=== PATIENT | male | born 1955 | race Hispanic/Latino ===

== ENCOUNTER 2018-04-20 11:39 | Inpatient (IN) | payer OTHER ==
[~2018-04-20] VITALS: Ht 160 cm; Wt 142.9 kg
[2018-04-20] MEDS ORDERED: SODIUM CHLORIDE 0.9% 1000ML 1,000 ML IV STA (12:23)
[2018-04-20] MEDS ORDERED: ALBUTEROL SULF 0.083% NEB SOLN 3 ML NEB NEB STA (12:23)
[2018-04-20] MEDS ORDERED: METHYLPREDNISOLONE SOD SUCC 125 MG/2ML VIAL IV STA (12:23)
[2018-04-20] MEDS ORDERED: IPRATROPIUM BROMIDE 0.02% 2.5 ML NEB ONE (12:26)
[2018-04-20] MEDS ORDERED: ALBUTEROL/IPRATROPIUM 3 ML NEB NEB ONE (12:30)
[2018-04-20 12:31] LABS: BASOPHILS # (AUTO) 0.1 (0.0-0.1); BASOPHILS % 0.6 % (0.0-1.0); EOSINOPHILS # (AUTO) 0.6 (0.0-0.4); EOSINOPHILS % 7.3 % (0.0-6.0); HEMATOCRIT 49.9 % (38.2-49.6); HEMOGLOBIN 16.5 g/dL (14.0-18.0); LYMPHOCYTES # (AUTO) 2.1 (1.0-3.2); LYMPHOCYTES % 26.2 % (18.0-39.1); MEAN CORPUSCULAR HEMOGLOBIN 33.4 pg (28-32); MEAN CORPUSCULAR HGB CONC 33.1 g/dL (31-35); MONOCYTES # (AUTO) 0.6 (0.2-0.8); MONOCYTES % 7.6 % (4.4-11.3); NEUTROPHILS # (AUTO) 4.7 (2.1-6.9); NEUTROPHILS % 57.9 % (38.7-80.0); PLATELET COUNT 183 x10e3/uL (140-360); RED BLOOD COUNT 4.94 x10e6/uL (4.3-5.7)
[2018-04-20 12:52] LABS: ANION GAP 13.1 mmol/L (8-16); CALCIUM 9.2 mg/dL (8.4-10.2); CREATININE, SERUM 1.46 mg/dL (0.72-1.25); POTASSIUM 5.1 mmol/L (3.5-5.1)
[2018-04-20 12:58] LABS: CREATINE KINASE MB 2.2 ng/mL (0-5.0)
--- NOTE | 2018-04-20 15:21 | Diagnostic Imaging Report ---
PROCEDURE: A single AP view of the chest. COMPARISON: None. INDICATIONS: ASTHMA FINDINGS: Lines/tubes: None. Lungs: Mild prominence of the pulmonary vasculature bilaterally. Mild bilateral perihilar peribronchial thickening and perihilar streaky densities. There is no evidence of pneumonia or pulmonary edema. Pleura: There is no pleural effusion or pneumothorax. Heart and mediastinum: The cardiac silhouette is mildly enlarged. Bones: No acute bony abnormality. 3.5 cm eggshell type calcification projected on the right lower hemithorax. IMPRESSION: 1. Findings may reflect mild reactive airway disease versus mild decompensated CHF in the proper clinical setting. Chris Carson M.D. Dictated by: Chris Carson M.D. on 04/20/2018 at 15:24 Electronically approved by: Chris Carson M.D. on 04/20/2018 at 15:24
[2018-04-20] MEDS: ALBUTEROL SULF 0.083% NEB SOLN 3 ML NEB NEB SCH ×3 (16:15→22:30)
[2018-04-20] MEDS: SODIUM CHLORIDE 0.9% 1000ML 1,000 ML IV SCH ×2 (16:30→17:26)
[2018-04-20] MEDS: AZITHROMYCIN 500MG/SOD CHL 0.9% 250ML BAG IV SCH ×2 (16:30→17:26)
[2018-04-20 17:00] VITALS: BP 196/80
[2018-04-20] MEDS: NIFEDIPINE CR 30 MG TAB PO SCH (18:10)
[2018-04-20 20:00] VITALS: BP 154/71
[2018-04-20] MEDS: METHYLPREDNISOLONE SOD SUCC 125 MG/2ML VIAL IV SCH (21:22)
[2018-04-20 22:17] VITALS: BP 154/71
[2018-04-20] MEDS: IPRATROPIUM BROMIDE 0.02% 2.5 ML NEB NEB SCH (22:30)
[2018-04-21] VITALS (8 sets, daily range): BP systolic 126–142; BP diastolic 59–70
[2018-04-21] MEDS: ALBUTEROL SULF 0.083% NEB SOLN 3 ML NEB NEB SCH ×6 (02:30→23:30)
[2018-04-21] MEDS: IPRATROPIUM BROMIDE 0.02% 2.5 ML NEB NEB SCH ×5 (02:30→23:30)
[2018-04-21] MEDS: METHYLPREDNISOLONE SOD SUCC 125 MG/2ML VIAL IV SCH ×3 (05:58→21:09)
[2018-04-21 06:35] LABS: BASOPHILS % 0.1 % (0.0-1.0); HEMATOCRIT 48.2 % (38.2-49.6); HEMOGLOBIN 15.6 g/dL (14.0-18.0); LYMPHOCYTES # (AUTO) 1.3 (1.0-3.2); LYMPHOCYTES % 11.3 % (18.0-39.1); MEAN CORPUSCULAR HEMOGLOBIN 33.3 pg (28-32); MEAN CORPUSCULAR HGB CONC 32.4 g/dL (31-35); MEAN CORPUSCULAR VOLUME 102.8 fL (81-99); MONOCYTES # (AUTO) 0.2 (0.2-0.8); MONOCYTES % 1.4 % (4.4-11.3); NEUTROPHILS % 86.8 % (38.7-80.0); PLATELET COUNT 191 x10e3/uL (140-360); RED BLOOD COUNT 4.69 x10e6/uL (4.3-5.7); RED CELL DISTRIBUTION WIDTH 14.4 % (11.7-14.4)
--- NOTE | 2018-04-21 06:41 | Diagnostic Imaging Report ---
CHEST SINGLE (PORTABLE), 04/21/2018 5:00 AM Technique: CHEST SINGLE (PORTABLE) Comparison: None available. Clinical history: Pneumonia Findings: See Impression Impression: Markedly degraded by portable technique and motion. No definite focal consolidation. Recommend repeat or upright PA and lateral when feasible. Signed by: Dr Sarika Cheney MD on 04/21/2018 6:38 AM
[2018-04-21 06:52] LABS: ANION GAP 11.6 mmol/L (8-16); BLOOD UREA NITROGEN 22 mg/dL (7-26); BUN/CREATININE RATIO 18 (6-25); CALCIUM 8.9 mg/dL (8.4-10.2); CARBON DIOXIDE 27 mmol/L (22-29); CHLORIDE 105 mmol/L (98-107); CREATININE, SERUM 1.19 mg/dL (0.72-1.25); EST GLOMERULAR FILTRATION RATE > 60 ML/MIN (60-); GLUCOSE 167 mg/dL (74-118); POTASSIUM 4.6 mmol/L (3.5-5.1); SODIUM 139 mmol/L (136-145)
[2018-04-21] MEDS: NIFEDIPINE CR 30 MG TAB PO SCH (08:07)
[2018-04-21] MEDS ORDERED: NIFEDIPINE CR 30 MG TAB PO SCH (09:00)
--- NOTE | 2018-04-21 12:00 | Diagnostic Imaging Report ---
PROCEDURE: CT CHEST WITHOUT CONTRAST CT scan of the chest WITHOUT intravenous contrast, using standard protocol. TECHNIQUE: The chest was scanned utilizing a multidetector helical scanner from the apex to the level of the adrenal glands. No IV contrast was administered because of referring physician request. Coronal and sagittal multiplanar reformations were obtained. COMPARISON: Chest radiograph 04/21/2018. INDICATIONS: SHORT OF BREATH, ASTHMA FINDINGS: Lines/tubes: None. Lungs and Airways: Scattered foci of groundglass opacity mixed with areas of relative hyperlucency. Subsegmental atelectasis in the lingula and dependent lower lobes. No airspace consolidation, gross fibrotic change, or bronchiectasis. Trachea, mainstem bronchi, and central lobar bronchi are patent, without filling defects. Pleura: No pleural effusion or pneumothorax. Heart and mediastinum: Visualized portions of the thyroid gland appear grossly normal though evaluation is limited secondary to beam hardening artifact from the humeri. Prominent mediastinal fat without mediastinal or axillary lymphadenopathy. Atherosclerotic coronary artery and great vessel calcifications. No ectasia or aneurysmal dilatation of the thoracic aorta. Main pulmonary artery is of normal caliber. No pericardial effusion. Soft tissues: No focal soft tissue abnormalities. Mild bilateral gynecomastia. Abdomen: Visualized portions of the liver, gallbladder, spleen, pancreas, and adrenal glands are unremarkable. Bones: No osseous destructive lesions. Bilateral glenohumeral degenerative joint disease. Multilevel degenerative disc changes of the thoracic spine. Healed fracture deformity of the posterolateral right fifth rib. IMPRESSION: Scattered foci of air trapping in keeping with small airways disease. Scattered foci of subsegmental atelectasis. No consolidative pneumonia. Atherosclerotic vascular disease. Dictated by: Arias Shields M.D. on 04/21/2018 at 12:03 Electronically approved by: Arias Shields M.D. on 04/21/2018 at 12:03
[2018-04-21] MEDS: AZITHROMYCIN 500MG/SOD CHL 0.9% 250ML BAG IV SCH (16:07)
[2018-04-21] MEDS ORDERED: FUROSEMIDE INJ 10 MG/ML 4 ML VIAL IV NR (17:00)
--- NOTE | 2018-04-21 17:10 | History and Physical ---
CHIEF COMPLAINT: New respiratory failure associated with respiratory distress, status asthmaticus, hypoxia, morbidly obese, Pickwickian syndrome. HISTORY: A 62-year-old male who is morbidly obese, disabled. Has baseline sleep apnea, hypertension. Patient came in with hypoxia. His O2 sat was low. His WBC was 8.0. His BUN and creatinine on admission were 27 and 1.5 respectively. He was having significant wheezing. Nebulizer treatment given but without any significant improvement. The patient was placed on oxygen and admitted to the hospital for further treatment. PAST MEDICAL HISTORY: Morbidly obese, obstructive sleep apnea, asthma, hypertension and dyslipidemia. PAST SURGICAL HISTORY: Noncontributory. SOCIAL HISTORY: Patient does not smoke or use alcohol. No recreational drug use. ALLERGIES: TO NO KNOWN ALLERGY. HOME MEDICATIONS: None. PHYSICAL EXAMINATION: VITAL SIGNS: Temperature is 98. Blood pressure 131/65. Pulse rate is 81. Respiration 22. GENERAL: The patient is morbidly obese. His BMI is greater than 55. HEENT: Normocephalic, atraumatic, anicteric. NECK: There is no neck. PULMONARY: Bilateral coarses and wheezing in both upper and lower lung ruiz. CARDIOVASCULAR: S1 and S2. Regular rate and rhythm. ABDOMEN: Soft. Morbidly obese. EXTREMITIES: 1+ edema. NEUROLOGIC: No focal deficit. LABORATORY: Sodium 139, potassium 4.6, chloride 105, bicarb 27, BUN 22, creatinine 1.1, glucose 167. WBC is 11.4, hemoglobin 15.6, hematocrit 48.2, platelets are 191. CT of the chest that was done showed that the patient has scattered foci of air-trapping in keeping with small airway disease. IMPRESSION: 1. Acute on chronic asthma exacerbation associated with severe hypoxia. 2. Pickwickian syndrome associated with sleep apnea, morbidly obese. BMI is greater than 55. 3. Hypoxia. 4. Lower extremity edema, possible early onset of diastolic dysfunction congestive heart failure. PLAN: Gentle IV Lasix. Nebulizer treatment scheduled and p.r.n. IV steroids. Antibiotics. I will consult Dr. Arias Patricio. Will monitor the patient closely. Oxygen support and will get peak flow and incentive spirometry treatment as well. Job#: [id number] EV
[2018-04-21 17:35] LABS: FREE THYROXINE INDEX 1.7397 (1.4-3.8); THYROID STIMULATING HORMONE 0.318 uIU/mL (0.350-4.940)
[2018-04-21] MEDS: ENOXAPARIN SOD INJ 40 MG/0.4 ML SYR SC SCH (17:38)
[2018-04-21 17:46] LABS: ABG HCO3 28 mmol/L (23-28); ABG PCO2 54 mmHg (41-51); ABG PH 7.32 (7.31-7.41); ABG PO2 72 mmHg (80-105)
[2018-04-21 17:53] LABS: FOLATE 7.7 ng/mL (7.0-15.4)
--- NOTE | 2018-04-21 19:49 | Consultation ---
DATE OF CONSULTATION: April 21, 2018 PULMONARY CONSULTATION This is a patient of Dr. Brock. He is followed at [facility]. He has a history of obstructive sleep apnea but apparently could not obtain a CPAP. It was documented on a sleep study 2 years ago at [facility] according to the patient. He does have a history of daytime hypersomnolence. Apneas have been witnessed by his . He does have home oxygen. He has a history of asthma diagnosed 3 months ago. NO KNOWN ALLERGIES. MEDICATIONS: Albuterol and unknown medication for hypertension. FAMILY HISTORY: Noncontributory. 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 He has never smoked. He was born in [facility]. SURGICAL HISTORY: Total knee replacement on the right. He has had knee surgery on the left. He uses his neighbor's walker. PHYSICAL EXAMINATION GENERAL: Obese white male with bow neck. VITALS: Temperature 98.2, pulse 82, respirations 20, blood pressure 135/90. HEAD: Normocephalic and atraumatic. NECK: Thick, small neck. LUNGS: Wheezing in all lung ruiz. HEART: Regular rhythm. ABDOMEN: Nontender. EXTREMITIES: There are stasis changes of lower extremities. Surgical scar easily noted on the right knee. He has macrocytic indices. CT without contrast revealed no evidence of pulmonary embolus with suggestion of air trapping. Trial of CPAP or BiPAP at night. Evaluate macrocytosis. Inhaled bronchodilators with controlling medications. Will check D-dimer. Prophylactic heparin. Hopefully reduce steroids when the patient is a bit more stable. Thank you for this kind referral. Job#: [id number]
[2018-04-21] MEDS: BUDESONIDE/FORMOTEROL 160/4.5MCG INHALER INH SCH (20:00)
[2018-04-21] MEDS: HEPARIN SOD (PORCINE) 5,000 UNIT/ML VIAL SC SCH (21:09)
[2018-04-22] VITALS: BP 135/65
[2018-04-22] MEDS: ALBUTEROL SULF 0.083% NEB SOLN 3 ML NEB NEB SCH ×6 (03:00→23:33)
[2018-04-22] MEDS: IPRATROPIUM BROMIDE 0.02% 2.5 ML NEB NEB SCH ×6 (03:00→23:33)
[2018-04-22 04:00] VITALS: BP 108/56
[2018-04-22] MEDS: METHYLPREDNISOLONE SOD SUCC 125 MG/2ML VIAL IV SCH ×3 (06:01→22:00)
[2018-04-22 06:34] LABS: BASOPHILS % 0.1 % (0.0-1.0); HEMATOCRIT 47.2 % (38.2-49.6); HEMOGLOBIN 15.5 g/dL (14.0-18.0); LYMPHOCYTES % 7.1 % (18.0-39.1); MEAN CORPUSCULAR HGB CONC 32.8 g/dL (31-35); MEAN CORPUSCULAR VOLUME 100.6 fL (81-99); MONOCYTES # (AUTO) 0.4 (0.2-0.8); NEUTROPHILS % 89.2 % (38.7-80.0); PLATELET COUNT 178 x10e3/uL (140-360); RED BLOOD COUNT 4.69 x10e6/uL (4.3-5.7); RED CELL DISTRIBUTION WIDTH 14.4 % (11.7-14.4)
[2018-04-22 06:53] LABS: ANION GAP 11.4 mmol/L (8-16); CALCIUM 9.1 mg/dL (8.4-10.2); CREATININE, SERUM 1.34 mg/dL (0.72-1.25); POTASSIUM 4.4 mmol/L (3.5-5.1)
[2018-04-22 08:07] VITALS: BP 150/70
[2018-04-22] MEDS: FUROSEMIDE INJ 10 MG/ML 4 ML VIAL IV SCH (08:15)
[2018-04-22] MEDS: NIFEDIPINE CR 30 MG TAB PO SCH (08:15)
[2018-04-22] MEDS: HEPARIN SOD (PORCINE) 5,000 UNIT/ML VIAL SC SCH ×2 (08:16→22:00)
[2018-04-22] MEDS: BUDESONIDE/FORMOTEROL 160/4.5MCG INHALER INH SCH ×2 (11:00→20:29)
[2018-04-22 12:00] VITALS: BP 135/63
[2018-04-22 16:05] VITALS: BP 141/84
[2018-04-22] MEDS: ENOXAPARIN SOD INJ 40 MG/0.4 ML SYR SC SCH (17:03)
[2018-04-22 20:40] VITALS: BP 113/56
[2018-04-23] VITALS (8 sets, daily range): BP systolic 126–177; BP diastolic 59–82
[2018-04-23] MEDS: ALBUTEROL SULF 0.083% NEB SOLN 3 ML NEB NEB SCH ×3 (02:35→12:00)
[2018-04-23] MEDS: IPRATROPIUM BROMIDE 0.02% 2.5 ML NEB NEB SCH ×3 (02:35→12:00)
[2018-04-23] MEDS: METHYLPREDNISOLONE SOD SUCC 125 MG/2ML VIAL IV SCH ×2 (05:41→14:03)
[2018-04-23] MEDS: BUDESONIDE/FORMOTEROL 160/4.5MCG INHALER INH SCH ×2 (08:00→22:55)
[2018-04-23] MEDS: FUROSEMIDE INJ 10 MG/ML 4 ML VIAL IV SCH (09:10)
[2018-04-23] MEDS: HEPARIN SOD (PORCINE) 5,000 UNIT/ML VIAL SC SCH ×2 (09:10→21:02)
[2018-04-23] MEDS: NIFEDIPINE CR 30 MG TAB PO SCH (09:10)
[2018-04-23] MEDS ORDERED: ENOXAPARIN SODIUM INJ 100 MG/ML SYR SC STA (09:40)
[2018-04-23] MEDS ORDERED: DILTIAZEM HCL 5 MG/ML 5 ML VIAL IV STA (09:59)
[2018-04-23] MEDS: METOPROLOL TARTRATE INJ 1 MG/ML VIAL IV PRN ×4 (11:25→22:10)
[2018-04-23] MEDS ORDERED: LEVALBUTEROL HCL SOLN NEBU 0.63 MG/3 ML NEB INH SCH (15:00)
[2018-04-23] MEDS ORDERED: LEVALBUTEROL HCL SOLN NEBU 0.63 MG/3 ML NEB INH PRN (15:00)
[2018-04-23] MEDS: AZITHROMYCIN 500MG/SOD CHL 0.9% 250ML BAG IV SCH (15:40)
[2018-04-23] MEDS: LEVALBUTEROL HCL SOLN NEBU 0.63 MG/3 ML NEB INH SCH ×3 (15:50→22:55)
[2018-04-23] MEDS ORDERED: METHYLPREDNISOLONE SOD SUCC 125 MG/2ML VIAL IV SCH (21:00)
[2018-04-23] MEDS: ENOXAPARIN SODIUM INJ 100 MG/ML SYR SC SCH (21:02)
[2018-04-23] MEDS ORDERED: DIGOXIN INJ 0.25 MG/ML 2 ML AMP IV STA (23:33)
[2018-04-23] MEDS ORDERED: AMIODARONE HCL 200 MG TAB PO STA (23:33)
[2018-04-23] MEDS ORDERED: MAGNESIUM SULFATE 2GM/50ML 50 ML IV ONE (23:45)
[2018-04-24] VITALS (7 sets, daily range): BP systolic 121–139; BP diastolic 58–80
[2018-04-24] MEDS: LEVALBUTEROL HCL SOLN NEBU 0.63 MG/3 ML NEB INH SCH (03:05)
[2018-04-24] MEDS ORDERED: RIVAROXABAN 10 MG TABLET PO SCH (06:00)
[2018-04-24] MEDS: LEVALBUTEROL HCL SOLN NEBU 0.63 MG/3 ML NEB INH PRN ×4 (06:30→23:04)
[2018-04-24] MEDS: METHYLPREDNISOLONE SOD SUCC 125 MG/2ML VIAL IV SCH ×2 (08:46→21:35)
[2018-04-24] MEDS: FUROSEMIDE INJ 10 MG/ML 4 ML VIAL IV SCH (08:46)
[2018-04-24] MEDS: CYANOCOBALAMIN INJ 1,000 MCG/ML VIAL IM SCH (08:46)
[2018-04-24] MEDS: ENOXAPARIN SODIUM INJ 100 MG/ML SYR SC SCH (08:46)
[2018-04-24] MEDS: AMIODARONE HCL 200 MG TAB PO SCH ×2 (08:46→16:58)
[2018-04-24] MEDS: METOPROLOL TARTRATE INJ 1 MG/ML VIAL IV PRN (08:47)
--- NOTE | 2018-04-24 09:12 | Consultation ---
DATE OF CONSULTATION: April 23, 2018 CARDIOLOGY CONSULTATION REASON FOR CONSULTATION: New-onset AFib. HPI: This is a 62-year-old obese male that presented with shortness of breath. According to the patient, he had shortness of breath times 1 week accompanied with wheezing, productive cough and low oxygen saturation. He stated that he saw his PCP at [facility], and was asked to come to the emergency room for evaluation. In the ER, he was found to be in AFib with RVR and cardiology was consulted. He has a history of obstructive sleep apnea, hypertension and obesity. He denied any chest pain, any dizziness, any diaphoresis, or headache. Troponin was negative. BNP showed 409. PAST MEDICAL HISTORY: Obesity, obstructive sleep apnea, asthma, hypertension, hyperlipidemia. PAST SURGICAL HISTORY: Bilateral knee surgery and appendectomy. FAMILY HISTORY: Positive for diabetes and hypertension. SOCIAL HISTORY: No smoking. No drinking. He lives at home with the family. MEDICATIONS: See med list. ALLERGIES: HE IS NOT ALLERGIC TO ANY MEDICATIONS. REVIEW OF SYSTEMS: Negative except those mentioned above. Is positive for shortness of breath and new-onset AFib. PHYSICAL EXAMINATION VITAL SIGNS: Temperature 97, heart rate 130, blood pressure 135/70, respirations 22, oxygen saturation 97% on 3 L nasal cannula. GENERAL: He is awake, alert and oriented times 3. HEENT: Mucous membrane moist. NECK: Supple. LUNGS: Bilateral with decreased breath sounds and scattered wheezing. CARDIOVASCULAR: Irregularly irregular. ABDOMEN: Soft. NEUROLOGICAL: Intact. EXTREMITIES: With trace edema. LABS: Sodium 140, potassium 4.4, chloride 102, CO2 23, creatinine 1.34, glucose 156. White blood cells 14.5, hemoglobin 15.5, hematocrit 47.2, and platelets 178,000. ASSESSMENT AND PLAN 1. New-onset atrial fibrillation with rapid ventricular response. 2. Asthma. 3. Obesity. 4. History of obstructive sleep apnea. 5. Hypertension. 6. Hyperlipidemia. ASSESSMENT AND PLAN: Will go ahead and get an echocardiogram to assess the LV and the valve function. Will put him on Lovenox 1 mg/kg q.12 h. Will check the thyroid function tests. Put him on metoprolol. Further cardiac workup pending clinical course. Thank you for this consultation. DICTATED BY SU PINEDO NP Job#: [id number] RI
[2018-04-24] MEDS: METOPROLOL TARTRATE 25 MG TAB PO SCH ×2 (12:45→17:00)
[2018-04-24] MEDS: RIVAROXABAN 15 MG TABLET PO SCH (17:00)
[2018-04-25] VITALS (7 sets, daily range): BP systolic 127–156; BP diastolic 78–92
[2018-04-25] MEDS: METOPROLOL TARTRATE 25 MG TAB PO SCH ×4 (00:15→17:36)
[2018-04-25 07:38] LABS: BASOPHILS % 0.1 % (0.0-1.0); HEMOGLOBIN 16.7 g/dL (14.0-18.0); LYMPHOCYTES # (AUTO) 0.7 (1.0-3.2); LYMPHOCYTES % 6.9 % (18.0-39.1); MEAN CORPUSCULAR HEMOGLOBIN 33.2 pg (28-32); MEAN CORPUSCULAR HGB CONC 33.4 g/dL (31-35); MEAN CORPUSCULAR VOLUME 99.4 fL (81-99); MONOCYTES # (AUTO) 0.6 (0.2-0.8); MONOCYTES % 5.2 % (4.4-11.3); NEUTROPHILS # (AUTO) 9.1 (2.1-6.9); NEUTROPHILS % 87.1 % (38.7-80.0); PLATELET COUNT 182 x10e3/uL (140-360); RED BLOOD COUNT 5.03 x10e6/uL (4.3-5.7); RED CELL DISTRIBUTION WIDTH 14.4 % (11.7-14.4)
[2018-04-25 07:57] LABS: ANION GAP 10.4 mmol/L (8-16); CALCIUM 8.2 mg/dL (8.4-10.2); CREATININE, SERUM 1.26 mg/dL (0.72-1.25); POTASSIUM 4.4 mmol/L (3.5-5.1)
[2018-04-25] MEDS: CYANOCOBALAMIN INJ 1,000 MCG/ML VIAL IM SCH (08:42)
[2018-04-25] MEDS: RIVAROXABAN 15 MG TABLET PO SCH ×2 (08:42→17:35)
[2018-04-25] MEDS: AMIODARONE HCL 200 MG TAB PO SCH ×2 (08:42→17:35)
[2018-04-25] MEDS: METHYLPREDNISOLONE SOD SUCC 125 MG/2ML VIAL IV SCH ×2 (08:42→21:10)
[2018-04-25] MEDS: FUROSEMIDE INJ 10 MG/ML 4 ML VIAL IV SCH (08:42)
[2018-04-26] VITALS (7 sets, daily range): BP systolic 134–161; BP diastolic 73–91
[2018-04-26] MEDS: METOPROLOL TARTRATE 25 MG TAB PO SCH ×4 (00:34→16:53)
[2018-04-26] MEDS: LEVALBUTEROL HCL SOLN NEBU 0.63 MG/3 ML NEB INH PRN (06:40)
[2018-04-26] MEDS: CYANOCOBALAMIN INJ 1,000 MCG/ML VIAL IM SCH (08:43)
[2018-04-26] MEDS: PREDNISONE 20 MG TAB PO SCH (08:43)
[2018-04-26] MEDS: METHYLPREDNISOLONE SOD SUCC 125 MG/2ML VIAL IV SCH (08:43)
[2018-04-26] MEDS: RIVAROXABAN 15 MG TABLET PO SCH ×2 (08:43→16:52)
[2018-04-26] MEDS: AMIODARONE HCL 200 MG TAB PO SCH ×2 (08:43→16:52)
[2018-04-26] MEDS: FUROSEMIDE INJ 10 MG/ML 4 ML VIAL IV SCH (08:43)
[2018-04-26] MEDS: MONTELUKAST SODIUM 10 MG TAB PO SCH (20:44)
[2018-04-27] VITALS (7 sets, daily range): BP systolic 109–153; BP diastolic 57–97
[2018-04-27] MEDS: METOPROLOL TARTRATE 25 MG TAB PO SCH ×5 (00:23→23:58)
[2018-04-27] MEDS ORDERED: BUDESONIDE 180MCG TUBUHALER INH SCH (06:00)
[2018-04-27] MEDS: LEVALBUTEROL HCL SOLN NEBU 0.63 MG/3 ML NEB INH PRN (07:30)
[2018-04-27] MEDS: CYANOCOBALAMIN INJ 1,000 MCG/ML VIAL IM SCH (08:41)
[2018-04-27] MEDS: PREDNISONE 20 MG TAB PO SCH (08:41)
[2018-04-27] MEDS: AMIODARONE HCL 200 MG TAB PO SCH ×2 (08:41→17:00)
[2018-04-27] MEDS: FUROSEMIDE INJ 10 MG/ML 4 ML VIAL IV SCH (08:41)
[2018-04-27] MEDS: MONTELUKAST SODIUM 10 MG TAB PO SCH (20:23)
[2018-04-28 00:09] VITALS: BP 126/67
[2018-04-28 04:00] VITALS: BP 112/67
[2018-04-28] MEDS: METOPROLOL TARTRATE 25 MG TAB PO SCH ×2 (06:09→12:22)
[2018-04-28] MEDS: LEVALBUTEROL HCL SOLN NEBU 0.63 MG/3 ML NEB INH PRN (06:45)
[2018-04-28 07:59] VITALS: BP 123/79
[2018-04-28 09:13] VITALS: BP 123/79
[2018-04-28] MEDS: AMIODARONE HCL 200 MG TAB PO SCH (09:13)
[2018-04-28] MEDS: CYANOCOBALAMIN INJ 1,000 MCG/ML VIAL IM SCH (09:13)
[2018-04-28] MEDS: FUROSEMIDE INJ 10 MG/ML 4 ML VIAL IV SCH (09:13)
[2018-04-28] MEDS: PREDNISONE 20 MG TAB PO SCH (09:13)
--- NOTE | 2018-04-28 09:14 | Discharge Summary ---
CONSULTANTS: Dr. Saroj Vann and Dr. Arias Patricio. FINAL DIAGNOSES 1. Status asthmaticus, status post acute respiratory distress, status post BiPAP treatment. 2. Morbid obesity with Pickwickian syndrome. 3. Acute hypoxia, resolving with oxygen. 4. Paroxysmal atrial fibrillation. 5. Acute diastolic dysfunction congestive heart failure associated with morbid obesity and most likely pulmonary hypertension. DISCHARGE MEDICATIONS 1. ProAir HFA 2 puffs q.4 h. p.r.n. 2. Lopressor 50 mg b.i.d. 3. Advair Diskus 500 per 50 one puff b.i.d. nebulizer. 4. DuoNeb q.6 h. p.r.n. 5. Amiodarone 200 mg b.i.d. 6. Lasix 40 mg q.a.m. 7. Singulair 10 mg at bedtime. 8. Xarelto 20 mg daily. 9. Prednisone 10 mg daily for 14 days. HOSPITAL COURSE: Patient is a 62-year-old morbidly obese male, BMI greater than 55, came in with increasing shortness of breath, wheezing and acute asthma exacerbation associated with status asthmaticus and near respiratory failure. The patient required BiPAP. He did better. He was hypoxic severely. He also had paroxysmal atrial fibrillation. He was loaded on amiodarone and now in normal sinus rhythm. The patient is at risk for multiple complications. The patient is stable at this time. He was on IV steroids and tapering down to orally. Patient is comfortable. Arranged for oxygen at home. The patient does have oxygen, but he has an empty tank. He is getting better. Home health arranged. The patient will go home today with the above medications. He needs to follow up with his family doctor within a week. The patient to have a sleep study as an outpatient. The patient is stable. Arranged for discharge today with a rolling walker. The patient is stable. Discussed with the patient at length multiple days. Medications given. ACTIVITY: As tolerated. DIET: A 2 g sodium diet. Job#: [id number] TWILA
[2018-04-28] MEDS ORDERED: SINGULAIR10 MG PO (10:14)
[2018-04-28] MEDS ORDERED: LASIX40 MG PO (10:14)
[2018-04-28] MEDS ORDERED: PREDNISONE10 MG PO (10:14)
[2018-04-28] MEDS ORDERED: AMIODARONE HCL200 MG PO (10:14)
[2018-04-28] MEDS ORDERED: XARELTO20 MG PO (10:14)
[2018-04-28] MEDS ORDERED: PRO AIR HFA INH (10:15)
[2018-04-28] MEDS ORDERED: LOPRESSOR25 MG PO (10:15)
[2018-04-28] MEDS ORDERED: ADVAIR 500/501 EA INH (10:21)
[2018-04-28] MEDS ORDERED: DUONEB (10:22)
[2018-04-28 11:55] VITALS: BP 128/60
== END 2018-04-28 15:49 | disposition home or self-care (01) | DRG 202 ==
LOC: ER 11:39 → ERHOLD 15:35 → MED/SURG 16:40 → OBSVTOIN 04-21 16:44
PROVIDERS: ADMIT Internal Medicine; ATTEND Internal Medicine
DX: J45.52 Severe persistent asthma with status asthmaticus (principal); I50.31 Acute diastolic (congestive) heart failure; Z68.43 Body mass index [BMI] 50.0-59.9, adult; E66.2 Morbid (severe) obesity with alveolar hypoventilation; I48.92 Unspecified atrial flutter; R09.02 Hypoxemia; E78.5 Hyperlipidemia, unspecified; I48.0 Paroxysmal atrial fibrillation; R06.03 Acute respiratory distress; I11.0 Hypertensive heart disease with heart failure; Z99.81 Dependence on supplemental oxygen; Z79.01 Long term (current) use of anticoagulants; Z79.52 Long term (current) use of systemic steroids; D75.89 Other specified diseases of blood and blood-forming organs; E53.8 Deficiency of other specified B group vitamins; Z96.651 Presence of right artificial knee joint; I27.20 Pulmonary hypertension, unspecified
CPT/HCPCS: 36415; 71045; 71250; 80048; 82550; 82553; 82607; 82746; 82805; 83036; 83090; 83880; 84436; 84443; 84479; 84484; 85025; 85379; 87070; 87205; 93005; 93306; 94640; 94660; 97139; 99284; G0378; J0456; J1160; J1644; J1650; J1940; J2930; J3420; J7030

== ENCOUNTER 2018-05-15 14:20 | Inpatient (IN) | payer OTHER ==
[~2018-05-15] VITALS: Ht 160 cm; Wt 142.9 kg
[~2018-05-15 14:20] MED LIST: ADVAIR 500/501 EA INH; AMIODARONE HCL200 MG PO; DUONEB; LASIX40 MG PO; LOPRESSOR25 MG PO; PREDNISONE10 MG PO; PRO AIR HFA INH; SINGULAIR10 MG PO; XARELTO20 MG PO
[2018-05-15] MEDS ORDERED: ONDANSETRON HCL INJ 2 MG/ML VIAL IV PRN ×2 (15:15→16:45)
[2018-05-15] MEDS ORDERED: NITROGLYCERIN 2% OINT 1 GM PKT TOP ONE (15:15)
[2018-05-15] MEDS ORDERED: FUROSEMIDE INJ 10 MG/ML 4 ML VIAL IV ONE (15:15)
[2018-05-15] MEDS ORDERED: ASPIRIN 81 MG CHEW TAB PO ONE ×2 (15:15→16:45)
--- NOTE | 2018-05-15 15:42 | Diagnostic Imaging Report ---
PROCEDURE: CHEST SINGLE (PORTABLE) COMPARISON: Patients [facility], DX, CHEST SINGLE (PORTABLE), 04/21/2018, 6:10. INDICATIONS: SHORTNESS OF BREATH. LEG EDEMA FINDINGS: The image is motion degraded. LUNGS: Diffusely hyperinflated and stable. No evidence of infiltrate. Central vascular prominence is stable. PLEURA: No effusions or pneumothorax. HEART \T\ MEDIASTINUM: Stable cardiomegaly and aortic ectasia. Rightward tracheal deviation BONES \T\ SOFT TISSUES: No new Findings. CONCLUSION: Stable pulmonary hyperinflation and cardiomegaly. No evidence of CHF or pulmonary edema given the limitations of this exam. Dictated by: Juan Guillory M.D. on 05/15/2018 at 15:47 Electronically approved by: Juan Guillory M.D. on 05/15/2018 at 15:47
[2018-05-15 16:05] LABS: ALBUMIN 3.2 g/dL (3.5-5.0); ALBUMIN/GLOBULIN RATIO 0.8 (0.8-2.0); ANION GAP 12.2 mmol/L (8-16); CALCIUM 9.4 mg/dL (8.4-10.2); CREATININE, SERUM 1.6 mg/dL (0.72-1.25); POTASSIUM 4.2 mmol/L (3.5-5.1)
[2018-05-15 16:11] LABS: CREATINE KINASE MB 1.9 ng/mL (0-5.0)
[2018-05-15 16:11] LABS: BASOPHILS % 0.6 % (0.0-1.0); EOSINOPHILS # (AUTO) 0.4 (0.0-0.4); EOSINOPHILS % 6.3 % (0.0-6.0); HEMATOCRIT 45.5 % (38.2-49.6); HEMOGLOBIN 15.3 g/dL (14.0-18.0); LYMPHOCYTES # (AUTO) 1.6 (1.0-3.2); LYMPHOCYTES % 25.3 % (18.0-39.1); MEAN CORPUSCULAR HEMOGLOBIN 33.6 pg (28-32); MEAN CORPUSCULAR HGB CONC 33.6 g/dL (31-35); MEAN CORPUSCULAR VOLUME 99.8 fL (81-99); MONOCYTES # (AUTO) 0.6 (0.2-0.8); NEUTROPHILS # (AUTO) 3.6 (2.1-6.9); NEUTROPHILS % 57.5 % (38.7-80.0); PLATELET COUNT 178 x10e3/uL (140-360); RED BLOOD COUNT 4.56 x10e6/uL (4.3-5.7); RED CELL DISTRIBUTION WIDTH 14.2 % (11.7-14.4)
[2018-05-15] MEDS ORDERED: MORPHINE SULFATE 2 MG/ML SYR IV PRN (16:45)
[2018-05-15] MEDS ORDERED: SODIUM CHLORIDE FLUSH 10 ML SYR INJ PRN (16:45)
[2018-05-15] MEDS ORDERED: PIPER-TAZ 3.375 GM 50 ML IV SCH ×2 (18:00→22:00)
[2018-05-15 20:00] VITALS: BP 119/62
[2018-05-15 20:37] VITALS: BP 141/92
[2018-05-16] VITALS (7 sets, daily range): BP systolic 109–147; BP diastolic 56–92
[2018-05-16 00:44] LABS: CREATINE KINASE MB 1.9 ng/mL (0-5.0)
[2018-05-16 05:16] LABS: BASOPHILS % 0.5 % (0.0-1.0); EOSINOPHILS # (AUTO) 0.3 (0.0-0.4); EOSINOPHILS % 5.9 % (0.0-6.0); HEMATOCRIT 46.9 % (38.2-49.6); HEMOGLOBIN 15.7 g/dL (14.0-18.0); LYMPHOCYTES # (AUTO) 1.9 (1.0-3.2); LYMPHOCYTES % 32.4 % (18.0-39.1); MEAN CORPUSCULAR HEMOGLOBIN 33.8 pg (28-32); MEAN CORPUSCULAR HGB CONC 33.5 g/dL (31-35); MEAN CORPUSCULAR VOLUME 100.9 fL (81-99); MONOCYTES # (AUTO) 0.6 (0.2-0.8); MONOCYTES % 10.2 % (4.4-11.3); NEUTROPHILS # (AUTO) 2.9 (2.1-6.9); NEUTROPHILS % 50.7 % (38.7-80.0); PLATELET COUNT 192 x10e3/uL (140-360); RED BLOOD COUNT 4.65 x10e6/uL (4.3-5.7); RED CELL DISTRIBUTION WIDTH 14.2 % (11.7-14.4)
[2018-05-16 05:25] LABS: INR 1.09; PROTHROMBIN TIME 13.3 seconds (11.9-14.5)
[2018-05-16 05:26] LABS: PARTIAL THROMBOPLASTIN TIME 28.3 seconds (23.8-35.5)
[2018-05-16 05:31] LABS: ANION GAP 15.2 mmol/L (8-16); CALCIUM 9.6 mg/dL (8.4-10.2); CREATININE, SERUM 1.62 mg/dL (0.72-1.25); POTASSIUM 4.2 mmol/L (3.5-5.1)
--- NOTE | 2018-05-16 06:33 | Diagnostic Imaging Report ---
CHEST SINGLE (PORTABLE), 05/16/2018 7:00 AM Technique: CHEST SINGLE (PORTABLE) Comparison: 04/21/2018 Clinical history: Shortness of breath Findings: See Impression Impression: Limited by portable technique and body habitus 1. Stable enlarged cardiomediastinal silhouette. 2. No consolidation or edema. No pneumothorax. Signed by: Dr Sarika Cheney MD on 05/16/2018 6:30 AM
[2018-05-16] MEDS ORDERED: ALBUTEROL/IPRATROPIUM 3 ML NEB NEB PRN (08:30)
[2018-05-16 08:55] LABS: CREATINE KINASE MB 2.1 ng/mL (0-5.0)
[2018-05-16] MEDS ORDERED: METOPROLOL TARTRATE 25 MG TAB PO SCH (09:00)
[2018-05-16] MEDS: SALMETEROL/FLUTICASONE 500/50 INH SCH ×2 (09:00→22:50)
[2018-05-16] MEDS: AMIODARONE HCL 200 MG TAB PO SCH (09:07)
[2018-05-16] MEDS: FUROSEMIDE INJ 10 MG/ML 4 ML VIAL IV SCH (09:07)
[2018-05-16] MEDS: METOPROLOL TARTRATE 50 MG TAB PO SCH ×2 (09:07→16:00)
[2018-05-16] MEDS: POTASSIUM CHLORIDE 10 MEQ TABCR PO SCH (09:07)
[2018-05-16] MEDS: METHYLPREDNISOLONE SOD SUCC 40 MG/ML VIAL IV SCH ×2 (09:07→21:03)
--- NOTE | 2018-05-16 13:05 | Consultation ---
DATE OF CONSULTATION: May 16, 2018 REASON FOR CONSULT: Atrial fibrillation. Mr. Medellin is a 62-year-old gentleman with a past medical history as listed below, who was admitted to the hospital recently, and presented with complaints of shortness of breath. He has been short of breath for the last several months. Again, he states he was admitted to the hospital and discharged. He apparently became more short of breath yesterday, and so decided to come to the hospital. He also has leg edema. Denies any chest pain, palpitations, cough, or expectoration. REVIEW OF SYSTEMS CONSTITUTIONAL: Has some fatigue and weakness. HEENT: No headache, blurry of vision, seizures, or syncope. CARDIOVASCULAR: No chest pain. Has dyspnea. Has some orthopnea and has leg edema. RESPIRATORY: No cough, fever or expectoration. GI: No abdominal pain, vomiting, diarrhea. : No dysuria, frequency, incontinence. ALLERGIES: NO KNOWN DRUG ALLERGIES. MEDICATIONS: See list. PAST MEDICAL HISTORY: History of hypertension, history of diabetes mellitus, history of paroxysmal atrial fibrillation, history of CHF, diastolic, history of sleep apnea, history of asthma. PAST SURGICAL HISTORY: History of appendectomy. SOCIAL HISTORY: Does not smoke or drink. FAMILY HISTORY: History of hypertension. PHYSICAL EXAMINATION GENERAL: An obese gentleman alert, oriented and not in any obvious distress. VITALS: Heart rate is 55, blood pressure 124/63, respiratory rate 20, temperature 96.9. HEENT: Atraumatic. NECK: No JVD, bruit, thyromegaly, or lymphadenopathy. CARDIOVASCULAR: First and 2nd heart sounds heard. No murmurs, rubs or gallops appreciated. CHEST: Decreased air entry at the base. No adventitious sounds appreciated. ABDOMEN: Obese and nontender. EXTREMITIES: One plus edema. LABS: Sodium is 142, potassium 4.2, chloride 100, bicarb 31, BUN 33, creatinine 1.62, glucose 112. Hemoglobin is 15.7, hematocrit 46.9 and platelets are 192,000. White count is 5.8. INR is 1.09. EKG shows sinus bradycardia at 52 beats per minute, normal axis, normal interval. Nonspecific ST-T changes. Chest x-ray shows stable enlarged cardiomediastinal silhouette. No consolidation or edema. BNP is 84. IMPRESSION 1. Paroxysmal atrial fibrillation. 2. History of congestive heart failure, diastolic and chronic. 3. Obesity. 4. Sleep apnea. 5. Hypertension. 6. Diabetes mellitus. 7. Renal insufficiency. PLAN 1. The patient's heart rate now is under control. 2. He is on rivaroxaban. Can continue the same. 3. His BNP is normal. The chest x-ray shows no congestion. Will hold off on diuretics. 4. Continue with other medications. Further cardiac workup depending on clinical course. The patient had an echocardiogram done recently. Will review that. As always, I appreciate and thank you very much for this referral. Job#: [id number] TWILA
[2018-05-16] MEDS: ALBUTEROL/IPRATROPIUM 3 ML NEB NEB SCH ×2 (13:25→19:50)
[2018-05-16] MEDS: RIVAROXABAN 20 MG TABLET PO SCH (16:39)
[2018-05-16] MEDS: MONTELUKAST SODIUM 10 MG TAB PO SCH (21:03)
[2018-05-17] VITALS (8 sets, daily range): BP systolic 128–162; BP diastolic 61–78
[2018-05-17] MEDS: ALBUTEROL/IPRATROPIUM 3 ML NEB NEB SCH ×4 (02:55→19:45)
[2018-05-17 05:28] LABS: ANION GAP 17.2 mmol/L (8-16); CALCIUM 9.8 mg/dL (8.4-10.2); CREATININE, SERUM 1.67 mg/dL (0.72-1.25); POTASSIUM 4.2 mmol/L (3.5-5.1)
[2018-05-17] MEDS: SALMETEROL/FLUTICASONE 500/50 INH SCH ×2 (07:15→19:45)
[2018-05-17] MEDS: FUROSEMIDE INJ 10 MG/ML 4 ML VIAL IV SCH (08:44)
[2018-05-17] MEDS: AMIODARONE HCL 200 MG TAB PO SCH (08:45)
[2018-05-17] MEDS: METHYLPREDNISOLONE SOD SUCC 40 MG/ML VIAL IV SCH ×2 (08:45→20:47)
[2018-05-17] MEDS: POTASSIUM CHLORIDE 10 MEQ TABCR PO SCH (08:45)
[2018-05-17] MEDS: METOPROLOL TARTRATE 50 MG TAB PO SCH ×2 (08:45→16:34)
[2018-05-17] MEDS: RIVAROXABAN 20 MG TABLET PO SCH (16:34)
[2018-05-17] MEDS: MONTELUKAST SODIUM 10 MG TAB PO SCH (20:47)
[2018-05-18] VITALS: BP 147/68
[2018-05-18] MEDS: ALBUTEROL/IPRATROPIUM 3 ML NEB NEB SCH ×4 (00:15→19:28)
[2018-05-18 04:00] VITALS: BP 116/65
[2018-05-18 05:59] LABS: ANION GAP 13.5 mmol/L (8-16); CALCIUM 9.3 mg/dL (8.4-10.2); CREATININE, SERUM 1.5 mg/dL (0.72-1.25); POTASSIUM 5.5 mmol/L (3.5-5.1)
[2018-05-18] MEDS: SALMETEROL/FLUTICASONE 500/50 INH SCH ×2 (06:58→19:25)
[2018-05-18] MEDS: METOPROLOL TARTRATE 50 MG TAB PO SCH ×2 (08:55→17:11)
[2018-05-18] MEDS: AMIODARONE HCL 200 MG TAB PO SCH (08:55)
[2018-05-18] MEDS: FUROSEMIDE INJ 10 MG/ML 4 ML VIAL IV SCH (08:55)
[2018-05-18] MEDS: METHYLPREDNISOLONE SOD SUCC 40 MG/ML VIAL IV SCH ×3 (08:55→21:45)
[2018-05-18 10:24] VITALS: BP 124/58
[2018-05-18 12:20] VITALS: BP 133/59
[2018-05-18] MEDS ORDERED: MORPHINE SULFATE INJ 4 MG/ML INJ IV PRN (16:30)
[2018-05-18] MEDS: RIVAROXABAN 20 MG TABLET PO SCH (17:11)
[2018-05-18 17:12] VITALS: BP 134/63
[2018-05-18 20:00] VITALS: BP 144/66
[2018-05-18] MEDS: MONTELUKAST SODIUM 10 MG TAB PO SCH (21:45)
[2018-05-19] VITALS (8 sets, daily range): BP systolic 115–144; BP diastolic 58–68
[2018-05-19] MEDS: ALBUTEROL/IPRATROPIUM 3 ML NEB NEB SCH ×4 (01:02→20:15)
[2018-05-19 05:52] LABS: ANION GAP 13.3 mmol/L (8-16); CREATININE, SERUM 1.62 mg/dL (0.72-1.25); POTASSIUM 5.3 mmol/L (3.5-5.1)
[2018-05-19] MEDS ORDERED: SOD POLYSTYRENE SULFONATE SUSP 15 GM/60 ML BTL PO ONE (07:45)
[2018-05-19] MEDS: SALMETEROL/FLUTICASONE 500/50 INH SCH ×2 (08:25→20:15)
[2018-05-19] MEDS: METHYLPREDNISOLONE SOD SUCC 40 MG/ML VIAL IV SCH (08:44)
[2018-05-19] MEDS: FUROSEMIDE INJ 10 MG/ML 4 ML VIAL IV SCH (08:44)
[2018-05-19] MEDS: METOPROLOL TARTRATE 50 MG TAB PO SCH (08:45)
[2018-05-19] MEDS ORDERED: SOD POLYSTYRENE SULFONATE SUSP 15 GM/60 ML BTL PR ONE (09:15)
[2018-05-19] MEDS: PREDNISONE 20 MG TAB PO SCH (11:08)
[2018-05-19] MEDS: RIVAROXABAN 20 MG TABLET PO SCH (17:22)
[2018-05-19] MEDS: MONTELUKAST SODIUM 10 MG TAB PO SCH (21:20)
[2018-05-20] VITALS: BP 144/67
[2018-05-20] MEDS: ALBUTEROL/IPRATROPIUM 3 ML NEB NEB SCH ×3 (02:25→10:34)
[2018-05-20 04:00] VITALS: BP 147/73
[2018-05-20 06:08] LABS: ANION GAP 15.3 mmol/L (8-16); CALCIUM 8.7 mg/dL (8.4-10.2); CREATININE, SERUM 1.54 mg/dL (0.72-1.25); POTASSIUM 4.3 mmol/L (3.5-5.1)
[2018-05-20] MEDS: SALMETEROL/FLUTICASONE 500/50 INH SCH (07:52)
[2018-05-20 08:26] VITALS: BP 130/58
[2018-05-20] MEDS: METOPROLOL TARTRATE 50 MG TAB PO SCH (08:38)
[2018-05-20 09:00] VITALS: BP 130/58
[2018-05-20] MEDS: FUROSEMIDE INJ 10 MG/ML 4 ML VIAL IV SCH (09:00)
[2018-05-20] MEDS: PREDNISONE 20 MG TAB PO SCH (09:00)
--- NOTE | 2018-05-20 09:28 | Discharge Summary ---
PCP: Dr. Paulette Carter TITLE CHECKER: Dr. Saroj Vann FINAL DIAGNOSES 1. [id number] diastolic dysfunction congestive heart failure exacerbation. 2. Asthma exacerbation. 3. Atrial fibrillation with rapid rate, now controlled. 4. Baseline morbid obesity. 5. Pickwickian syndrome with pulmonary hypertension and chronic kidney disease. A 62-year-old male came in with fluid overload. Patient had bilateral lower extremity edema. He also has a rapid heart rate. Patient was stable. He had increasing shortness of breath. He had bilateral lower extremity edema now much improved. The patient at baseline takes Lasix 40 mg once a day. He is also drinking water. The patient was noted to be in exacerbation. He is doing much better now. He is stable. Medication has been adjusted. He will stop his amiodarone 200 mg twice a day and take amiodarone 100 mg daily. He will stop his metoprolol 50 twice a day and now taking 25 mg at bedtime. He will add on Zaroxolyn 2.5 mg daily as needed for his increasing leg swelling. He will continue with his Advair Diskus, Proair, DuoNeb, prednisone, Xarelto, Singulair, and Lasix 40 mg daily. Patient is stable and discharged home today. He does have oxygen. Home health has been arranged. I suggest skilled but the patient refused. A 2 g sodium diet. Fluid restriction of 1.5 L per 24 24 hours or less. Patient is stable and discharged today. Job#: [id number] TN
[2018-05-20] MEDS ORDERED: AMIODARONE HCL200 MG PO (10:11)
[2018-05-20] MEDS ORDERED: METOPROLOL TART25 MG PO (10:11)
[2018-05-20] MEDS ORDERED: METOLAZONE2.5 MG PO (10:14)
[2018-05-20 12:24] VITALS: BP 108/64
== END 2018-05-20 15:12 | disposition home or self-care (01) | DRG 291 ==
LOC: ER 14:20 → OBSVTOIN 16:46 → ERHOLD 16:46 → MED/SURG 19:33
PROVIDERS: ADMIT Internal Medicine; ATTEND Internal Medicine
DX: I13.0 Hypertensive heart and chronic kidney disease with heart failure and stage 1 through stage 4 chronic kidney disease, or unspecified chronic kidney disease (principal); I50.33 Acute on chronic diastolic (congestive) heart failure; J45.901 Unspecified asthma with (acute) exacerbation; Z68.43 Body mass index [BMI] 50.0-59.9, adult; E66.01 Morbid (severe) obesity due to excess calories
CPT/HCPCS: 36415; 71045; 80048; 80053; 82550; 82553; 83735; 83880; 84484; 85025; 85379; 85610; 85730; 93005; 94640; 94660; 97139; 99284; J1940; J2405; J2920

== ENCOUNTER 2018-10-07 17:36 | Emergency (ER) | payer OTHER ==
[~2018-10-07] VITALS: Ht 160 cm; Wt 142.9 kg
[~2018-10-07 17:36] MED LIST changes: +METOLAZONE2.5 MG PO; +METOPROLOL TART25 MG PO
[2018-10-07] MEDS ORDERED: METHYLPREDNISOLONE SOD SUCC 125 MG/2ML VIAL IV ONE (18:15)
[2018-10-07] MEDS ORDERED: ALBUTEROL/IPRATROPIUM 3 ML NEB NEB ONE (18:15)
[2018-10-07] MEDS ORDERED: AZITHROMYCIN 250 MG TAB PO ONE (18:15)
[2018-10-07 18:42] LABS: BASOPHILS # (AUTO) 0.1 (0.0-0.1); BASOPHILS % 0.7 % (0.0-1.0); EOSINOPHILS # (AUTO) 0.4 (0.0-0.4); EOSINOPHILS % 5.2 % (0.0-6.0); HEMATOCRIT 48.6 % (38.2-49.6); LYMPHOCYTES # (AUTO) 2.4 (1.0-3.2); LYMPHOCYTES % 34.5 % (18.0-39.1); MEAN CORPUSCULAR HEMOGLOBIN 33.1 pg (28-32); MEAN CORPUSCULAR HGB CONC 32.9 g/dL (31-35); MEAN CORPUSCULAR VOLUME 100.4 fL (81-99); MONOCYTES # (AUTO) 0.7 (0.2-0.8); MONOCYTES % 9.4 % (4.4-11.3); NEUTROPHILS # (AUTO) 3.5 (2.1-6.9); NEUTROPHILS % 49.6 % (38.7-80.0); PLATELET COUNT 210 x10e3/uL (140-360); RED BLOOD COUNT 4.84 x10e6/uL (4.3-5.7); RED CELL DISTRIBUTION WIDTH 13.9 % (11.7-14.4)
[2018-10-07 19:18] LABS: ALBUMIN 3.4 g/dL (3.5-5.0); ALBUMIN/GLOBULIN RATIO 0.9 (0.8-2.0); ANION GAP 15.4 mmol/L (8-16); CALCIUM 9.8 mg/dL (8.4-10.2); CREATININE, SERUM 1.93 mg/dL (0.72-1.25); POTASSIUM 4.4 mmol/L (3.5-5.1)
--- NOTE | 2018-10-07 19:24 | Diagnostic Imaging Report ---
EXAMINATION: CHEST 2 VIEWS INDICATION: Shortness of breath and wheezing. COMPARISON: 07/07/2018. FINDINGS: TUBES and LINES: None. LUNGS: Mild bilateral hyperinflation. Mild prominence of the pulmonary vasculature. There is no evidence of pneumonia or pulmonary edema. PLEURA: No pleural effusion or pneumothorax. HEART AND MEDIASTINUM: The cardiac silhouette is mildly to moderately enlarged. BONES AND SOFT TISSUES: No acute osseous lesion. Soft tissues are unremarkable. UPPER ABDOMEN: No free air under the diaphragm. IMPRESSION: Mild pulmonary venous congestion. Signed by: Dr. Chris Carson M.D. on 10/07/2018 7:20 PM
[2018-10-07 19:25] LABS: CREATINE KINASE MB 2.7 ng/mL (0-5.0)
== END 2018-10-07 20:36 | disposition home or self-care (01) ==
LOC: ER 17:36
DX: R06.09 Other forms of dyspnea (principal); R05 Cough; J44.1 Chronic obstructive pulmonary disease with (acute) exacerbation; I10 Essential (primary) hypertension
CPT/HCPCS: 36415; 71046; 80053; 82550; 82553; 84484; 85025; 96374; 99284; J2930

== ENCOUNTER 2019-06-07 15:05 | Inpatient (IN) | payer OTHER ==
[~2019-06-07] VITALS: Ht 160 cm; Wt 130.6 kg
[2019-06-07] MEDS ORDERED: ALBUTEROL/IPRATROPIUM 3 ML NEB NEB ONE (15:45)
[2019-06-07] MEDS ORDERED: ALBUTEROL SULF 0.083% NEB SOLN 3 ML NEB NEB ONE (15:45)
[2019-06-07] MEDS ORDERED: METHYLPREDNISOLONE SOD SUCC 125 MG/2ML VIAL IV ONE (15:45)
[2019-06-07] MEDS ORDERED: AZITHROMYCIN 500MG/NS 250 ML 250 ML IV SCH (16:00)
[2019-06-07 16:16] LABS: BASOPHILS % 0.6 % (0.0-1.0); EOSINOPHILS # (AUTO) 0.5 (0.0-0.4); EOSINOPHILS % 6.5 % (0.0-6.0); HEMATOCRIT 49.9 % (38.2-49.6); HEMOGLOBIN 16.1 g/dL (14.0-18.0); LYMPHOCYTES % 27.4 % (18.0-39.1); MEAN CORPUSCULAR HEMOGLOBIN 32.9 pg (28-32); MEAN CORPUSCULAR HGB CONC 32.3 g/dL (31-35); MEAN CORPUSCULAR VOLUME 101.8 fL (81-99); MONOCYTES # (AUTO) 0.8 (0.2-0.8); MONOCYTES % 10.8 % (4.4-11.3); NEUTROPHILS # (AUTO) 3.9 (2.1-6.9); NEUTROPHILS % 54.3 % (38.7-80.0); PLATELET COUNT 199 x10e3/uL (140-360); RED CELL DISTRIBUTION WIDTH 15.1 % (11.7-14.4)
--- NOTE | 2019-06-07 16:21 | Diagnostic Imaging Report ---
EXAMINATION: CHEST SINGLE (PORTABLE) INDICATION: Shortness of breath, cough COMPARISON: Multiple prior chest radiograph, most recently 10/07/2018 FINDINGS: LINES/TUBES:EKG leads overlie the chest. LUNGS:The lungs are moderately inflated. There is perihilar fullness and indistinctness of the pulmonary vasculature. PLEURA:No pleural effusion or pneumothorax. MEDIASTINUM:Cardiomediastinal silhouette is stably enlarged. BONES/SOFT TISSUES:No acute osseous injury. ABDOMEN:No free air under the diaphragm. IMPRESSION: Pulmonary edema and cardiomegaly. Signed by: Ed Britton MD on 06/07/2019 4:17 PM
[2019-06-07] MEDS: CEFTRIAXONE SOD 1 GM/NS 50 ML 50 ML IV SCH (16:28)
[2019-06-07 16:36] LABS: ALBUMIN 3.2 g/dL (3.5-5.0); ALBUMIN/GLOBULIN RATIO 0.8 (0.8-2.0); ANION GAP 16.5 mmol/L (8-16); CALCIUM 9.4 mg/dL (8.4-10.2); CREATININE, SERUM 1.68 mg/dL (0.72-1.25); MAGNESIUM 1.7 MG/DL (1.3-2.1); POTASSIUM 4.5 mmol/L (3.5-5.1)
[2019-06-07 16:52] LABS: B-TYPE NATRIURETIC PEPTIDE2 185.5 pg/mL (0-100)
[2019-06-07 16:53] LABS: PROTHROMBIN TIME 13.7 seconds (11.9-14.5)
[2019-06-07 16:54] LABS: PARTIAL THROMBOPLASTIN TIME 31.5 seconds (23.8-35.5)
[2019-06-07] MEDS ORDERED: FUROSEMIDE INJ 10 MG/ML 4 ML VIAL IV ONE (18:00)
[2019-06-07 18:13] LABS: COLOR,URINE YELLOW (YELLOW); LEUKOCYTE ESTERASE ,URINE NEGATIVE (NEGATIVE)
[2019-06-07 18:14] LABS: CLARITY,URINE SL CLOUDY (CLEAR); KETONES,URINE NEGATIVE (NEGATIVE); NITRITE,URINE NEGATIVE (NEGATIVE); PROTEIN,URINE DIPSTICK NEGATIVE (NEGATIVE); URINE UROBILINOGEN 0.2 mg/dL (0.2 - 1)
[2019-06-07 18:15] LABS: BILIRUBIN,URINE NEGATIVE (NEGATIVE)
[2019-06-07 18:29] LABS: BACTERIA,URINE MODERATE /HPF; EPITHELIAL CELLS,URINE FEW /LPF; WBC,URINE (MAN) 0-5 /HPF (0-5)
[2019-06-07 18:30] LABS: AMORPHOUS SEDIMENT,URINE FEW (FEW)
[2019-06-07] MEDS ORDERED: LISINOPRIL20 MG PO (19:20)
[2019-06-07] MEDS ORDERED: PRAVASTATIN SOD40 MG PO (19:20)
--- NOTE | 2019-06-07 19:25 | NUR ---
pts sats 89% increased 02 to 4l sats now 94%
[2019-06-07] MEDS: ALBUTEROL SULF 0.083% NEB SOLN 3 ML NEB NEB SCH ×2 (19:30→23:45)
[2019-06-07] MEDS: IPRATROPIUM BROMIDE 0.02% 2.5 ML NEB NEB SCH ×2 (19:30→23:45)
[2019-06-07] MEDS: METHYLPREDNISOLONE SOD SUCC 125 MG/2ML VIAL IV SCH (21:35)
--- NOTE | 2019-06-07 21:52 | NUR ---
pt placed on tele box 5
[2019-06-07 21:59] VITALS: BP 138/64
--- NOTE | 2019-06-07 21:59 | NUR ---
PT ARRIVED ON THE UNIT VIA STRETCHER AT 2159. PT IS A&OX3. RESPIRATION IS EVEN AND UNLABORED, NO DISTRESS NOTED. PT ORIENTED TO THE ROOM, BED IN LOWEST POSITION, LOCKED, AND CALL LIGHT WITHIN REACH. ADMISSION AND HEAD TO TOE ASSESSMENT COMPLETE. WILL CONTINUE TO MONITOR.
[2019-06-08] VITALS (8 sets, daily range): BP systolic 102–138; BP diastolic 55–88
[2019-06-08 02:18] LABS: CREATINE KINASE MB 2.7 ng/mL (0-5.0)
[2019-06-08] MEDS: ALBUTEROL SULF 0.083% NEB SOLN 3 ML NEB NEB SCH (02:30)
[2019-06-08] MEDS: IPRATROPIUM BROMIDE 0.02% 2.5 ML NEB NEB SCH (02:30)
--- NOTE | 2019-06-08 05:55 | Diagnostic Imaging Report ---
EXAMINATION: CHEST SINGLE (PORTABLE) INDICATION: Shortness of breath. COMPARISON: 06/07/2019. FINDINGS: LINES/TUBES: None. LUNGS:The lungs are mildly hyperinflated. Mild prominence of the pulmonary vasculature bilaterally. PLEURA:No pleural effusion or pneumothorax. MEDIASTINUM:Cardiomediastinal silhouette is mildly enlarged. Tortuous thoracic aorta. BONES/SOFT TISSUES:No acute osseous injury. Remote healed right-sided rib fractures. ABDOMEN:No free air under the diaphragm. IMPRESSION: Mild pulmonary venous congestion, unchanged. Signed by: Dr. Chris Carson M.D. on 06/08/2019 5:51 AM
[2019-06-08 06:08] LABS: EOSINOPHILS # (AUTO) 0.2 (0.0-0.4); EOSINOPHILS % 2.6 % (0.0-6.0); HEMATOCRIT 51.3 % (38.2-49.6); LYMPHOCYTES # (AUTO) 0.4 (1.0-3.2); MEAN CORPUSCULAR HEMOGLOBIN 32.1 pg (28-32); MEAN CORPUSCULAR HGB CONC 31.2 g/dL (31-35); MONOCYTES % 0.5 % (4.4-11.3); NEUTROPHILS # (AUTO) 5.3 (2.1-6.9); NEUTROPHILS % 89.6 % (38.7-80.0); PLATELET COUNT 224 x10e3/uL (140-360); RED BLOOD COUNT 4.98 x10e6/uL (4.3-5.7)
[2019-06-08] MEDS: METHYLPREDNISOLONE SOD SUCC 125 MG/2ML VIAL IV SCH ×3 (06:13→16:30)
[2019-06-08 06:37] LABS: ALBUMIN 3.1 g/dL (3.5-5.0); ALBUMIN/GLOBULIN RATIO 0.7 (0.8-2.0); ANION GAP 15.7 mmol/L (8-16); CALCIUM 9.3 mg/dL (8.4-10.2); CREATININE, SERUM 2.18 mg/dL (0.72-1.25); POTASSIUM 4.7 mmol/L (3.5-5.1)
[2019-06-08 06:48] LABS: CREATINE KINASE MB 2.4 ng/mL (0-5.0)
--- NOTE | 2019-06-08 07:00 | NUR ---
rounded with cage shift manager nurse, patient aware of change and in no distress. call campos within reach and bed in lowest position.
[2019-06-08 07:19] LABS: BAND NEUTROPHILS % (MANUAL) 6 %; LYMPHOCYTES % (MANUAL) 1 % (19-48); MONOCYTES % (MANUAL) 1 % (3.4-9.0); NEUTROPHILS % (MANUAL) 92 % (40-74)
[2019-06-08 07:20] LABS: ANISOCYTOSIS F; POIKILOCYTOSIS S; RBC MORPHOLOGY COMMENT ABNORMAL
[2019-06-08 07:21] LABS: PLATELET ESTIMATE ADEQUATE; PLATELET MORPHOLOGY COMMENT NORMAL
[2019-06-08] MEDS: FUROSEMIDE INJ 10 MG/ML 4 ML VIAL IV SCH ×2 (09:20→16:30)
[2019-06-08] MEDS ORDERED: ALBUTEROL/IPRATROPIUM 3 ML NEB NEB PRN (09:45)
[2019-06-08] MEDS: ENOXAPARIN 30 MG/0.3 ML SYR SC SCH ×2 (10:49→22:05)
--- NOTE | 2019-06-08 11:28 | History and Physical ---
CHIEF COMPLAINT: Shortness of breath, difficulty breathing, coughing started seven days, but much worsened recently. HISTORY OF PRESENT ILLNESS: The patient is a 63-year-old male, morbidly obese, obstructive sleep apnea, paroxysmal atrial fibrillation, asthma, obesity, Pickwickian syndrome, his BMI greater than 50, came in with increasing shortness of breath, hypoxic, cough, wheezing. The patient is started on antibiotics and nebulizer treatments. Along with that he is also getting steroids as well. The patient is on oxygen at this time. CPAP has not been ordered, but the patient seemed to be stable. PAST MEDICAL HISTORY: PAF, congestive heart failure, diastolic, morbid obesity, obstructive sleep apnea, hypertension, asthma, diabetes type 2, chronic kidney disease, hypertension. PAST SURGICAL HISTORY: Appendectomy. SOCIAL HISTORY: The patient does not smoke or use alcohol. No regular drugs. ALLERGIES: NO KNOWN ALLERGIES. HOME MEDICATIONS: List is available for review. REVIEW OF SYSTEMS: Cough productive, difficulty breathing, oxygen improvement, pulse ox was low in the emergency room. No abdominal pain. No headaches. No visual problem. PHYSICAL EXAMINATION: VITAL SIGNS: Temperature is 98, blood pressure 120/60, pulse rate 62, respirations 22. GENERAL: The patient is not in distress. He is awake. HEENT: Normocephalic, atraumatic. Anicteric. NECK: Supple grossly. PULMONARY: Diminished breath sounds with rhonchi, coarse bases. CARDIOVASCULAR: Regular rhythm. ABDOMEN: Morbidly obese. EXTREMITIES: Chronic venous skin changes. 1+ edema. NEUROLOGIC: No focal deficit. LABORATORY DATA: WBC 7.1, hemoglobin 16, hematocrit 50, platelet 199. Chemistry; sodium 138, potassium 4.5, chloride 103, bicarb 23, BUN 30, creatinine 2.18, glucose is 199. Chest x-ray, mild pulmonary venous congestion. IMPRESSION: 1. Acute hypoxia associated with multiple factors. 2. Acute asthma exacerbation versus acute on chronic diastolic dysfunction, congestive heart failure. 3. Possible atypical pneumonia. We will obtain CT chest without contrast. 4. Multiple baseline problems including sleep apnea, morbidly obese, Pickwickian syndrome. PLAN: CT chest without contrast. Antibiotics. Tapering steroids. Nebulizer treatments. DVT prophylaxis. Continue with patient anticoagulant therapy if any at home. Consultation with Dr. Forbes. Consultation with Dr. Arias Patricio. CPAP for sleep. We will monitor the patient closely. MD REYNALDO Diehl /[phone]
[2019-06-08] MEDS: ALBUTEROL/IPRATROPIUM 3 ML NEB NEB SCH ×2 (12:17→19:38)
--- NOTE | 2019-06-08 13:41 | Diagnostic Imaging Report ---
EXAM: CT Chest WITHOUT intravenous contrast 06/08/2019 9:32 AM INDICATION: Shortness of breath COMPARISON: Chest radiograph of 06/08/2019, chest CT of 04/21/2018 TECHNIQUE: Chest was scanned utilizing a multidetector helical scanner from the lung apex through the level of the adrenal glands without administration of IV contrast. Coronal and sagittal reformations were obtained. Routine protocol was performed. IV CONTRAST: None RADIATION DOSE: Total DLP: 497.9 mGy*cm. Dose modulation, iterative reconstruction, and/or weight based adjustment of the mA/kV was utilized to reduce the radiation dose to as low as reasonably achievable. COMPLICATIONS: None FINDINGS: LINES/ TUBES: None. LUNGS AND AIRWAYS: The central airways are patent. No focal consolidation or pulmonary edema. Bibasilar dependent left greater than right subsegmental atelectasis. No suspicious pulmonary nodules. PLEURA: No pleural effusion. No pneumothorax. HEART AND MEDIASTINUM: The thyroid gland appears unremarkable. No supraclavicular, mediastinal, or hilar lymphadenopathy. The heart is not enlarged. No pericardial effusion. Diffuse atherosclerotic calcifications of the coronary arteries and thoracic aorta. UPPER ABDOMEN: Limited noncontrast enhanced images of the upper abdomen demonstrate no focal abnormality in the partially visualized liver, gallbladder, spleen, and pancreas. The kidneys and adrenal glands are not visualized. BONES: No acute osseous injury. Degenerative changes of the visualized spine. No suspicious lytic or blastic lesions. SOFT TISSUES: Unremarkable. IMPRESSION: No pneumonia or pulmonary edema. Bibasilar dependent left greater than right subsegmental atelectasis. Signed by: Ed Britton MD on 06/08/2019 1:38 PM
--- NOTE | 2019-06-08 13:50 | Consultation ---
DATE OF CONSULTATION: Pulmonary Consultation HISTORY OF PRESENT ILLNESS: Mr. 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 ALLERGIES: NO KNOWN ALLERGIES. 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 HOME MEDICATIONS: Prednisone 10, Advair, amiodarone, lisinopril, metoprolol, and Pravachol while in [facility]. FAMILY HISTORY: Positive coronary artery disease. PHYSICAL EXAMINATION: GENERAL: A morbidly obese white male in no acute distress, looking his stated age. VITAL SIGNS: Temperature 98, pulse 70, respirations 18, and blood pressure 120/61. HEAD: Normocephalic. Eyes, PERRLA. LUNGS: Expiratory wheezing. HEART: Regular rhythm. ABDOMEN: Nontender. EXTREMITIES: Stasis changes lower extremities, not edematous at this time. IMPRESSION: Presumed bronchial asthma with elevated eosinophils 6.5% upon admission. He has a minimal elevation. Congestive heart failure, presumed obstructive sleep apnea, possible cardiac. Asthma. Check serum IgE levels. Moderate dose corticosteroids. Monitor blood sugars. Trial of CPAP at night. Outpatient sleep study. Resume controller medications, Symbicort, and a trial of montelukast. Thank you for this kind referral. MD BILLY Bonner/GUERDA /[id number]
[2019-06-08 15:02] LABS: CREATINE KINASE 103 IU/L (30-200)
[2019-06-08] MEDS: LISINOPRIL 20 MG TAB PO SCH (15:38)
[2019-06-08] MEDS: CEFTRIAXONE SOD 1 GM/NS 50 ML 50 ML IV SCH (16:30)
--- NOTE | 2019-06-08 18:01 | Consultation ---
DATE OF CONSULTATION: 06/08/2019 Cardiology Consultation CONSULTING PHYSICIAN: Ray Sood M.D., Interventional Cardiology. REASON FOR CONSULTATION: Shortness of breath. HISTORY OF PRESENT ILLNESS: Mr. Medellin is a 63-year-old man with morbid obesity, Pickwickian syndrome, dyslipidemia, suspected obstructive sleep apnea, chronic kidney disease, history of arrhythmia, unspecified, who presents with an episode of wheezing and worsening shortness of breath. He has a reported history of asthma. In the last week, he has been noticing increasing cough and dyspnea. He denies any chest discomfort or shortness of breath. REVIEW OF SYSTEMS: A 12 system review is negative except for as noted above. PAST MEDICAL HISTORY: Significant for as per HPI. SOCIAL HISTORY: No smoking, alcohol, or drugs. PHYSICAL EXAMINATION: GENERAL: Temperature 97.5, heart rate 84, respiratory rate 18, blood pressure 120/63, O2 saturation 100%, BMI 50.1. GENERAL: In no acute distress, alert. NECK: Grossly obese. Unable to visualize JVD well. CHEST: Scattered rhonchi and wheezing. Decreased breath sounds. CARDIOVASCULAR: Regular rate and rhythm, normal S1 and S2, no S3 or S4. ABDOMEN: Soft, nontender. EXTREMITIES: Trace edema both lower extremities. CARDIOVASCULAR MEDICATIONS: Reviewed. Furosemide 40 mg b.i.d., metoprolol tartrate 25 mg at bedtime, amiodarone 100 mg daily, pravastatin 40 mg at bedtime, Lovenox 30 mg subcu q.12 hours, lisinopril 20 mg b.i.d., albuterol and ipratropium inhalers, ceftriaxone and azithromycin antibiotic, montelukast, budesonide as well as methylprednisolone also prescribed. LABORATORY DATA: Studies reviewed. Sodium 138, potassium 4.7, chloride 100, bicarbonate 27, BUN 38, creatinine 2.18, glucose 199. White blood cells 5.8, hemoglobin 16, platelets 224. INR 1. AST 14, ALT 18, alkaline phosphatase 55, elevated eosinophils over 6%. EKG, sinus rhythm with early repolarization pattern. ASSESSMENT: 1. A 63-year-old man presents with acute shortness of breath and cough in the setting of wheezing on auscultation and a prior history of asthma. Differential diagnosis includes guwdy-kn-wqfdffm diastolic heart failure, pneumonia, asthma exacerbation. Associated issues include hypertension, diabetes mellitus type 2, chronic kidney disease, morbid obesity, and Pickwickian syndrome as well as arrhythmia, unspecified. Recommend obtain echocardiogram. 2. Reviewing of CT goes against pulmonary edema or consolidation and more in line with asthma exacerbation. I agree with steroid trial as well as inhaler therapy. We will continue for now diuretic therapy and assess response. Monitor renal function and volume status closely. Further recommendations to follow. At this point, his blood pressure remains well controlled. Continue antihypertensives and keep a telemetry to confirm specific arrhythmia issues. Currently in sinus rhythm. Ray Sood MD AFV/MODL /[id number]
--- NOTE | 2019-06-08 18:08 | NUR ---
Nutrition Screen Note RD Recommendation for Physician: -Rec adding ADA 1800 to cardiac diet -RD provided handout on low sodium diet. Plan of Care: RD following, monitoring for tolerance and adequacy, diet education Nutrition reason for involvement: Diagnosis Primary Diagnose(s): asthma exacerbation, CHF PMH: PAF, congestive heart failure, diastolic, morbid obesity, obstructive sleep apnea, hypertension, asthma, diabetes type 2, chronic kidney disease Ht: 63in Wt: 283.5lb BMI: 50.2kg/m2 IBW: 115lb +/- 10% RD Assessment: (06/08) Chart reviewed. Labs and meds reviewed. 63yo M, who was admitted for SOB. Visited pt in the room. Japanese speaking only. 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 No GI complains reported. No chewing or swallowing difficulty noted. Weight has been stable. Current Diet: cardiac diet Malnutrition Evaluation (06/08/2019) The patient does not meet criteria for a specified degree of malnutrition at this time. Will re-evaluate at follow-up as appropriate. Diet Education Needs Assessment: Diet education indicated, pt and were agreeable. Handout was provided in Japanese version. Nutrition Care Level: low Signed: Jacqueline Quintanilla, MS, RD, LD
--- NOTE | 2019-06-08 19:15 | NUR ---
rounded with hotel night auditor nurse, patient aware of change and in no distress with at bedside. call campos within reach and bed in lowest position.
--- NOTE | 2019-06-08 19:27 | NUR ---
PT IS RESTING IN BED WITH AT BEDSIDE. RESPIRATION IS EVEN AND UNLABORED, NO DISTRESS NOTED. BED IN THE LOWEST POSITION, LOCKED, BED ALARM ON, AND CALL LIGHT WITHIN REACH. WILL CONTINUE TO MONITOR.
[2019-06-08] MEDS: BUDESONIDE/FORMOTEROL 160/4.5MCG INHALER INH SCH (19:38)
[2019-06-08] MEDS: METOPROLOL TARTRATE 25 MG TAB PO SCH (22:05)
[2019-06-08] MEDS: PRAVASTATIN 20 MG TAB PO SCH (22:05)
[2019-06-08] MEDS: MONTELUKAST SODIUM 10 MG TAB PO SCH (22:05)
[2019-06-09] VITALS (7 sets, daily range): BP systolic 97–120; BP diastolic 54–64
--- NOTE | 2019-06-09 | NUR ---
PT REFUSE TO BE PLACED ON BIPAP. WILL CONTINUE TO MONITOR.
[2019-06-09] MEDS: ALBUTEROL/IPRATROPIUM 3 ML NEB NEB SCH ×4 (01:10→19:00)
[2019-06-09 06:21] LABS: CALCIUM 9.6 mg/dL (8.4-10.2); CREATININE, SERUM 2.52 mg/dL (0.72-1.25)
[2019-06-09 06:51] LABS: BASOPHILS % 0.1 % (0.0-1.0); HEMATOCRIT 51.2 % (38.2-49.6); HEMOGLOBIN 16.6 g/dL (14.0-18.0); LYMPHOCYTES # (AUTO) 0.6 (1.0-3.2); LYMPHOCYTES % 4.4 % (18.0-39.1); MEAN CORPUSCULAR HGB CONC 32.4 g/dL (31-35); MEAN CORPUSCULAR VOLUME 101.8 fL (81-99); MONOCYTES # (AUTO) 0.5 (0.2-0.8); MONOCYTES % 3.5 % (4.4-11.3); NEUTROPHILS # (AUTO) 13.2 (2.1-6.9); NEUTROPHILS % 91.6 % (38.7-80.0); PLATELET COUNT 207 x10e3/uL (140-360); RED BLOOD COUNT 5.03 x10e6/uL (4.3-5.7); RED CELL DISTRIBUTION WIDTH 15.2 % (11.7-14.4)
[2019-06-09] MEDS: FUROSEMIDE INJ 10 MG/ML 4 ML VIAL IV SCH (08:43)
[2019-06-09] MEDS: AZITHROMYCIN 250 MG TAB PO SCH (08:43)
[2019-06-09] MEDS: METHYLPREDNISOLONE SOD SUCC 125 MG/2ML VIAL IV SCH (08:43)
[2019-06-09] MEDS: LISINOPRIL 20 MG TAB PO SCH (08:43)
[2019-06-09] MEDS: ENOXAPARIN 30 MG/0.3 ML SYR SC SCH ×2 (08:43→21:13)
[2019-06-09] MEDS ORDERED: AMIODARONE HCL 200 MG TAB PO SCH (09:00)
[2019-06-09] MEDS: POLYETHYLENE GLYCOL 3350 17 GM PACK PO SCH ×2 (11:58→17:34)
--- NOTE | 2019-06-09 12:45 | Progress Note ---
DATE: 06/09/2019 Cardiology Progress Note SUBJECTIVE: Shortness of breath and wheezing improved. Denies chest pain. OBJECTIVE: VITAL SIGNS: Temperature 97 degrees, heart rate 50, blood pressure 115/60, O2 saturation 96%, and respiratory rate 18. BMI 50. GENERAL: In no acute distress. Alert. Active. NECK: No JVD. CHEST: Scattered wheezing overall better compared to yesterday's auscultation. ABDOMEN: Soft and morbidly obese. EXTREMITIES: Trace edema. Warm distal extremities. CARDIOVASCULAR MEDICATIONS: Reviewed. Furosemide 40 mg b.i.d., budesonide, metoprolol tartrate 25 mg at bedtime, amiodarone will be discontinued today, methylprednisolone, pravastatin 40 mg at bedtime, azithromycin, albuterol and ipratropium, ceftriaxone, montelukast, and lisinopril 20 mg b.i.d. STUDIES: Reviewed. Sodium 138, potassium 5, chloride 98, bicarbonate 27, BUN 60, creatinine 2.5, and glucose 145. White blood cells 14.4, hemoglobin 16.6, and platelets 207. INR 1. AST 14, ALT 18, and alkaline phosphatase 55. Echocardiogram reviewed, left atrial enlargement, left ventricular hypertrophy, moderate. Hyperdynamic biventricular systolic function with LVEF for 70%. Small pericardial effusion. ASSESSMENT AND PLAN: A 63-year-old man presents with: 1. Asthma exacerbation. 2. Morbid obesity and Pickwickian syndrome. 3. Dhopv-dk-lexexlu renal failure. 4. Borderline elevated potassium. 5. Suspected component of zlpsu-ux-burfpvj diastolic heart failure. 6. Hypertension. RECOMMENDATIONS: 1. Overall improving. The patient denies any prior history of arrhythmias, on amiodarone. We will discontinue. Currently remains in sinus rhythm. 2. Hold lisinopril in light of potassium and creatinine and hold diuretics as the patient seems euvolemic on exam today. Ray Sood MD AFWoody/MODL /[id number]
[2019-06-09] MEDS: BUDESONIDE/FORMOTEROL 160/4.5MCG INHALER INH SCH ×2 (13:39→19:00)
[2019-06-09] MEDS: CEFTRIAXONE SOD 1 GM/NS 50 ML 50 ML IV SCH (16:00)
[2019-06-09] MEDS ORDERED: METHYLPREDNISOLONE SOD SUCC 125 MG/2ML VIAL IV SCH (17:00)
[2019-06-09] MEDS: METOPROLOL TARTRATE 25 MG TAB PO SCH (21:00)
[2019-06-09] MEDS: MONTELUKAST SODIUM 10 MG TAB PO SCH (21:13)
[2019-06-09] MEDS: PRAVASTATIN 20 MG TAB PO SCH (21:13)
[2019-06-10] VITALS (8 sets, daily range): BP systolic 103–115; BP diastolic 51–79
[2019-06-10] MEDS: ALBUTEROL/IPRATROPIUM 3 ML NEB NEB SCH ×4 (00:12→19:00)
--- NOTE | 2019-06-10 06:54 | NUR ---
report given to day nurse. patient is resting comfortably in bed. bed is in lowest position and call light is within reach.
[2019-06-10] MEDS ORDERED: FUROSEMIDE INJ 10 MG/ML 4 ML VIAL IV SCH (07:30)
[2019-06-10] MEDS ORDERED: LISINOPRIL 20 MG TAB PO SCH (07:30)
--- NOTE | 2019-06-10 07:48 | NUR ---
Pt received in bed. Aox4 and able to verbalize needs. Pt denies any pain at this time. Pt is mostly icelandic speaking. Continues on 4L/NC, denies SOB.
[2019-06-10] MEDS: BUDESONIDE/FORMOTEROL 160/4.5MCG INHALER INH SCH ×2 (07:55→19:00)
[2019-06-10] MEDS: AZITHROMYCIN 250 MG TAB PO SCH (08:30)
[2019-06-10] MEDS: POLYETHYLENE GLYCOL 3350 17 GM PACK PO SCH ×2 (08:30→17:00)
[2019-06-10] MEDS: ENOXAPARIN 30 MG/0.3 ML SYR SC SCH ×2 (08:30→20:58)
[2019-06-10] MEDS: CEFTRIAXONE SOD 1 GM/NS 50 ML 50 ML IV SCH (16:00)
[2019-06-10] MEDS ORDERED: SODIUM CHLORIDE 0.9% 250ML 250 ML ONE (16:28)
--- NOTE | 2019-06-10 16:41 | Progress Note ---
DATE: 06/10/2019 Cardiology Progress Note SUBJECTIVE: Shortness of breath and wheezing. Continues to improve. OBJECTIVE: VITAL SIGNS: Temperature 98.6, heart rate 76, blood pressure 106/51, respiratory rate 18, and O2 saturation 96%. BMI 50.1. GENERAL: In no acute distress. NECK: Obese. Unable to assess JVD. CHEST: Scattered wheezing and decreased breath sounds. CARDIOVASCULAR: Regular rate and rhythm. Normal S1, S2. No S3 or S4. Systolic ejection murmur /6. ABDOMEN: Morbidly obese, soft, nontender. EXTREMITIES: Trace edema, warm distal extremities. CARDIOVASCULAR MEDICATIONS: Reviewed. Metoprolol tartrate 25 mg at bedtime, pravastatin 40 mg at bedtime, Lovenox 30 mg subcu q.12 hours. On antibiotics including ceftriaxone and azithromycin and on inhalers, albuterol and ipratropium. STUDIES: Reviewed. Sodium 138, potassium 5, chloride 98, bicarbonate 27, BUN 60, creatinine 2.5, glucose 145. White blood cells 14.4, hemoglobin 16.6, and platelets 207. INR 1, PT 13.7, PTT 31.5. AST 14, ALT 18, total bilirubin 0.3, alkaline phosphatase 55. ASSESSMENT: A 63-year-old man with asthma. 1. Pickwickian syndrome and extreme morbid obesity with BMI of 50. 2. Zoffx-rt-aqaicui diastolic heart failure. 3. Dyslipidemia. 4. Renal failure with possible acute kidney injury component. 5. Borderline elevated potassium. RECOMMENDATIONS: 1. Continue to hold off on diuretics and/or SHARMAINE inhibitor or ARB. 2. Liberalize blood pressure management and sodium intake for now as blood pressure is low normal. 3. Improving on antibiotics and inhalers. Suspect primary issue here is asthma exacerbation plus-minus upper respiratory tract infection. Please feel free to call with any questions, . MD TEMITOPE Christine/MODL /[id number]
[2019-06-10] MEDS: MONTELUKAST SODIUM 10 MG TAB PO SCH (20:58)
[2019-06-10] MEDS: PRAVASTATIN 20 MG TAB PO SCH (20:58)
[2019-06-10] MEDS: METOPROLOL TARTRATE 25 MG TAB PO SCH (20:59)
[2019-06-11] VITALS (7 sets, daily range): BP systolic 102–124; BP diastolic 51–69
[2019-06-11 06:36] LABS: BASOPHILS % 0.1 % (0.0-1.0); EOSINOPHILS % 0.1 % (0.0-6.0); HEMATOCRIT 49.5 % (38.2-49.6); HEMOGLOBIN 15.6 g/dL (14.0-18.0); LYMPHOCYTES # (AUTO) 1.2 (1.0-3.2); LYMPHOCYTES % 13.3 % (18.0-39.1); MEAN CORPUSCULAR HGB CONC 31.5 g/dL (31-35); MEAN CORPUSCULAR VOLUME 101.4 fL (81-99); MONOCYTES # (AUTO) 0.9 (0.2-0.8); MONOCYTES % 9.6 % (4.4-11.3); NEUTROPHILS # (AUTO) 6.9 (2.1-6.9); NEUTROPHILS % 76.5 % (38.7-80.0); PLATELET COUNT 192 x10e3/uL (140-360); RED BLOOD COUNT 4.88 x10e6/uL (4.3-5.7); RED CELL DISTRIBUTION WIDTH 15.1 % (11.7-14.4)
[2019-06-11 06:50] LABS: ANION GAP 12.7 mmol/L (8-16); CALCIUM 8.6 mg/dL (8.4-10.2); CREATININE, SERUM 2.07 mg/dL (0.72-1.25); POTASSIUM 4.7 mmol/L (3.5-5.1)
--- NOTE | 2019-06-11 06:56 | NUR ---
RECEIVED PATIENT RESTING IN BED. RESPIRATIONS EVEN AND UNLABORED, NO ACUTE DISTRESS NOTED. NO S/S OF PAIN NOTED AT THIS TIME. CALL LIGHT WITHIN REACH. BED IN THE LOWEST POSITION.
--- NOTE | 2019-06-11 07:17 | NUR ---
report given to day nurse. patient is resting comfortably in bed. bed is in lowest position and call campos is within reach.
[2019-06-11] MEDS: BUDESONIDE/FORMOTEROL 160/4.5MCG INHALER INH SCH ×2 (07:35→20:30)
[2019-06-11] MEDS: ALBUTEROL/IPRATROPIUM 3 ML NEB NEB SCH ×4 (07:35→20:05)
--- NOTE | 2019-06-11 08:25 | NUR ---
PT QUALIFIES FOR HOME 02 ORDERS REC'D CHOICE LETTER SIGNED FOR [facility] PT GIVEN COPY OF CHOICE LETTER CALLED AND NOTIFIED JOLENE STEPHENS WITH [employer] TO DELIVER PORTABLES TO ROOM FAXED ORDERS TO [phone] PORTABLES TO BE DELIVERED TO ROOM TODAY FOR PENDING DC HOME
[2019-06-11] MEDS: POLYETHYLENE GLYCOL 3350 17 GM PACK PO SCH ×2 (08:34→16:14)
[2019-06-11] MEDS: AZITHROMYCIN 250 MG TAB PO SCH (08:34)
[2019-06-11] MEDS: ENOXAPARIN 30 MG/0.3 ML SYR SC SCH ×2 (08:34→20:44)
--- NOTE | 2019-06-11 10:04 | NUR ---
PLACED BED PUMP ON PATIENT'S MATTRESS.
--- NOTE | 2019-06-11 10:04 | NUR ---
PLACED BED PUMO
--- NOTE | 2019-06-11 10:24 | NUR ---
EDUCATED ABOUT IMM, SIGNED, FILED IN CHART, WITH COPY LEFT WITH FAMILY AT BEDSIDE.
[2019-06-11] MEDS ORDERED: ACETAZOLAMIDE 250 MG TAB PO ONE (10:30)
--- NOTE | 2019-06-11 14:05 | NUR ---
Pt is 94% on 4LHF NC. Pt is 86% on Room Air.
[2019-06-11] MEDS: CEFTRIAXONE SOD 1 GM/NS 50 ML 50 ML IV SCH (14:55)
--- NOTE | 2019-06-11 19:01 | NUR ---
REPORT GIVEN TO ONCOMING NURSE. WALKING ROUNDS DONE. PATIENT IS RESTING IN BED. NO ACUTE DISTRESS NOTED. CALL LIGHT WITHIN REACH. BED IN THE LOWEST POSITION.
[2019-06-11] MEDS: METOPROLOL TARTRATE 25 MG TAB PO SCH (20:44)
[2019-06-11] MEDS: MONTELUKAST SODIUM 10 MG TAB PO SCH (20:44)
[2019-06-11] MEDS: PRAVASTATIN 20 MG TAB PO SCH (20:44)
--- NOTE | 2019-06-11 23:45 | Progress Note ---
DATE: 06/11/2019 Cardiology Progress Note SUBJECTIVE: The patient reports mild improvement in his shortness of breath with less wheezing, but he still experience frequent cough. OBJECTIVE: VITAL SIGNS: Temperature, he is afebrile; heart rate is 70 beats per minute; blood pressure is 112/57; respirations 18; and O2 saturation is 96%. BMI is 50. GENERAL: No acute distress. Morbidly obese. NECK: Obese, unable to assess JVD. CHEST: Decreased end expiratory wheezes. Decreased breath sounds bilaterally. CARDIOVASCULAR: Regular rate and rhythm. Normal S1 and S2. No S3 or S4. Soft systolic ejection murmur. ABDOMEN: Morbidly obese. Soft and nontender. EXTREMITIES: Trace edema bilaterally. Warm distal extremities. MEDICATIONS: Cardiovascular medications, please refer chart for complete list of medicines. LABORATORY DATA: Potassium is 4.7. Hemoglobin is 15.6, creatinine is 2.07. ASSESSMENT: 1. A 63-year-old man, admitted for shortness of breath due to asthma exacerbation. 2. Pickwickian syndrome and extreme morbid obesity with BMI of 50. 3. Qqzid-qi-ekdqzde diastolic heart failure. 4. Dyslipidemia. 5. Renal failure with possible acute kidney injury component. RECOMMENDATIONS: 1. Continue supportive care and avoid SHARMAINE inhibitors and ARBs for now. 2. Liberalize blood pressure management and sodium intake since blood pressure readings are marginal. 3. The patient is improving on antibiotics and inhalers. Therefore, suspect primary issue is asthma exacerbation with a possible superimpose respiratory tract infection. Continue supportive care per Primary. 4. DVT prophylaxis. Cross cover for Dr. Ray Sood. MD SUNIL Alvarado/GUERDA /[id number]
[2019-06-12] VITALS (7 sets, daily range): BP systolic 107–139; BP diastolic 54–83
[2019-06-12] MEDS: ALBUTEROL/IPRATROPIUM 3 ML NEB NEB SCH ×4 (01:05→19:00)
[2019-06-12] MEDS: BUDESONIDE/FORMOTEROL 160/4.5MCG INHALER INH SCH ×2 (08:25→19:00)
[2019-06-12] MEDS: AZITHROMYCIN 250 MG TAB PO SCH (08:30)
[2019-06-12] MEDS: ENOXAPARIN 30 MG/0.3 ML SYR SC SCH ×2 (08:30→20:59)
[2019-06-12] MEDS: POLYETHYLENE GLYCOL 3350 17 GM PACK PO SCH ×2 (08:30→16:14)
--- NOTE | 2019-06-12 13:27 | Progress Note ---
DATE: 06/12/2019 Cardiology Progress Note SUBJECTIVE: The patient reports continued improvement and overall condition with less shortness of breath. OBJECTIVE: VITAL SIGNS: Temperature is 97.1, heart rate 66, blood pressure 118/78, and respirations 20. GENERAL: No acute distress. The patient is morbidly obese. NECK: Obese. Unable to assess JVD. CHEST: Still with end-expiratory wheezes. Decreased breath sounds bilaterally. CARDIOVASCULAR: Regular rate and rhythm. Normal S1, S2. Soft systolic ejection murmur. ABDOMEN: Morbidly obese, soft, nontender. Positive bowel sounds. EXTREMITIES: Trace lower extremity edema bilaterally. Warm distal extremities. MEDICATIONS: Please refer to chart for complete list of cardiovascular medications. LABORATORY DATA: No new data to review. ASSESSMENT: 1. A 63-year-old man admitted for shortness of breath due to asthma exacerbation. 2. Pickwickian syndrome and extreme morbid obesity with BMI of 50. 3. Acute on chronic diastolic heart failure. 4. Dyslipidemia. 5. Renal failure with possible acute kidney injury component. RECOMMENDATIONS: 1. Continue current regimen and avoid SHARMAINE inhibitors, ARBs for now. 2. Continue supportive care for asthma exacerbation and possible respiratory infection. 3. Liberalize blood pressure management and sodium intake since blood pressure readings are marginal. 4. DVT prophylaxis. 5. Physical Therapy assessment for possible home O2. Cross cover for Dr. Ray Sood. MD SUNIL Alvarado/GUERDA /[id number]
[2019-06-12] MEDS: CEFTRIAXONE SOD 1 GM/NS 50 ML 50 ML IV SCH (15:45)
--- NOTE | 2019-06-12 18:59 | NUR ---
Report given to oncoming nurse. Walking rounds done. Patient is resting in bed. No acute distress noted. at bedside. Denies pain or discomfort at this time. Call light within reach. Bed in the lowest position.
[2019-06-12] MEDS: METOPROLOL TARTRATE 25 MG TAB PO SCH (20:59)
[2019-06-12] MEDS: MONTELUKAST SODIUM 10 MG TAB PO SCH (20:59)
[2019-06-12] MEDS: PRAVASTATIN 20 MG TAB PO SCH (20:59)
[2019-06-13] VITALS (8 sets, daily range): BP systolic 103–138; BP diastolic 58–78
[2019-06-13] MEDS: ALBUTEROL/IPRATROPIUM 3 ML NEB NEB SCH ×4 (01:15→19:30)
--- NOTE | 2019-06-13 07:00 | NUR ---
Received patient resting in bed. Respirations even and unlabored, no acute distress noted. Denies pain or discomfort. Call light within reach. Bed in the lowest position.
[2019-06-13] MEDS: BUDESONIDE/FORMOTEROL 160/4.5MCG INHALER INH SCH ×2 (07:58→19:30)
[2019-06-13] MEDS: AZITHROMYCIN 250 MG TAB PO SCH (09:00)
[2019-06-13] MEDS: POLYETHYLENE GLYCOL 3350 17 GM PACK PO SCH ×2 (09:00→16:08)
[2019-06-13] MEDS: ENOXAPARIN 30 MG/0.3 ML SYR SC SCH ×2 (09:00→20:31)
--- NOTE | 2019-06-13 12:27 | Progress Note ---
DATE: 06/13/2019 Cardiology Progress Note SUBJECTIVE: The patient is stable overnight with no new complaints and he reports improvement in clinical symptoms with less shortness of breath. OBJECTIVE: VITAL SIGNS: Temperature is 97.0, heart rate 54, blood pressure is 103/58, respirations 18, and O2 saturation 94% on room air. GENERAL: No acute distress. Obese. NECK: Obese. Unable to assess JVD. CHEST: Improved aeration, decreased breath sounds bilaterally. CARDIOVASCULAR: Regular rate and rhythm. Normal S1, S2. Soft systolic ejection murmur. ABDOMEN: Morbidly obese, soft, nontender. Positive bowel sounds. EXTREMITIES: Trace lower extremity edema bilaterally. Warm distal extremities. MEDICATIONS: Please refer to chart for complete list of cardiovascular medications. LABORATORY DATA: No new data to review. ASSESSMENT: 1. A 63-year-old man admitted for shortness of breath due to asthma exacerbation. 2. Pickwickian syndrome and extreme morbid obesity with BMI 50. 3. Acute on chronic diastolic heart failure. 4. Dyslipidemia. 5. Renal failure with possible acute kidney injury component. RECOMMENDATIONS: 1. Continue current regimen and avoid SHARMAINE inhibitors and ARBs for now. 2. Continue supportive care for asthma exacerbation and possible respiratory infection. 3. Liberalize blood pressure management and sodium intake since blood pressure readings are marginal. 4. DVT prophylaxis. Cross cover for Dr. Ray Sood. MD SUNIL Alvarado/GUERDA /[id number]
--- NOTE | 2019-06-13 14:45 | NUR ---
Visit made by the Spiritual Care Department Pastoral Visitor, Yan Adrian. PV provided pastoral presence, hospitality, and supportive listening. Pastoral Visitor informed pt/family of the scope of Rn Prior Authorization Services and availability. CLARENCE BRAUN Logistics Officer Spiritual Care Department O: [phone] Pager: [phone] ([phone] number calling from)
[2019-06-13] MEDS: CEFTRIAXONE SOD 1 GM/NS 50 ML 50 ML IV SCH (15:10)
--- NOTE | 2019-06-13 15:20 | NUR ---
PATIENT REFUSING MD DREAD NOTIFIED.
--- NOTE | 2019-06-13 19:02 | NUR ---
Report given to oncoming nurse. Walking rounds done. Patient is resting in bed. No acute distress noted. Call light within reach. Bed in the lowest position.
--- NOTE | 2019-06-13 19:11 | NUR ---
PT IS RESTING IN BED. RESPIRATION IS EVEN AND UNLABORED, NO DISTRESS NOTED. BED IN THE LOWEST POSITION, LOCKED, BED ALARM ON, AND CALL LIGHT WITHIN REACH. WILL CONTINUE TO MONITOR.
[2019-06-13] MEDS: METOPROLOL TARTRATE 25 MG TAB PO SCH (20:31)
[2019-06-13] MEDS: MONTELUKAST SODIUM 10 MG TAB PO SCH (20:31)
[2019-06-13] MEDS: PRAVASTATIN 20 MG TAB PO SCH (20:31)
[2019-06-14] VITALS (8 sets, daily range): BP systolic 108–144; BP diastolic 53–78
--- NOTE | 2019-06-14 07:00 | NUR ---
RECEIVED PATIENT IN BEDSIDE REPORT. PATIENT IS RESTING IN BED AT THIS TIME, AT BEDSIDE. SOME PAIN REPORTED IN TOP OF L FOOT, UNABLE TO RATE ON PAIN SCALE. O2 @ 4L VIA NC. R AC 18G AND R FA 20G IVS ARE BOTH ASYMPTOMATIC, INTACT, AND PATENT. NO S&S OF DISTRESS NOTED. BED LOCKED IN LOWEST POSITION, SIDE RAILS UPX2, CALL LIGHT IN REACH.
[2019-06-14] MEDS: BUDESONIDE/FORMOTEROL 160/4.5MCG INHALER INH SCH ×2 (07:05→19:15)
[2019-06-14] MEDS: ALBUTEROL/IPRATROPIUM 3 ML NEB NEB SCH ×4 (07:05→19:15)
[2019-06-14] MEDS: ENOXAPARIN 30 MG/0.3 ML SYR SC SCH ×2 (08:58→21:27)
[2019-06-14] MEDS: AZITHROMYCIN 250 MG TAB PO SCH (08:58)
[2019-06-14] MEDS: POLYETHYLENE GLYCOL 3350 17 GM PACK PO SCH ×2 (09:03→17:55)
--- NOTE | 2019-06-14 09:30 | NUR ---
MD OCAMPO IN WITH PATIENT, NEW ORDERS RECEIVED.
[2019-06-14] MEDS ORDERED: CELECOXIB 200 MG CAP PO PRN (09:45)
[2019-06-14] MEDS ORDERED: COLCHICINE 0.6 MG TAB PO ONE (10:30)
--- NOTE | 2019-06-14 11:58 | Progress Note ---
DATE: 06/14/2019 Cardiology Progress Note SUBJECTIVE: No complaints today. OBJECTIVE: VITAL SIGNS: Temperature 96.6, heart rate 69, blood pressure 144/68, respiratory rate 20, O2 saturation 93%. GENERAL: In no acute distress. NECK: No JVD. CHEST: Clear to auscultation. CARDIOVASCULAR: Regular rate and rhythm. Normal S1, S2. No S3, no S4. ABDOMEN: Soft, nontender. EXTREMITIES: No edema. CARDIOVASCULAR MEDICATIONS: Reviewed. LABORATORY DATA: Sodium 138, potassium 4.7, chloride 96, bicarbonate 34, BUN 77, creatinine 2.07 trending down, glucose 95. White blood cells 5.07, hemoglobin 15.6, platelets 192. INR 1. AST 14, ALT 18, alkaline phosphatase 55. ASSESSMENT: A 63-year-old man with pickwickian syndrome presenting with asthma exacerbation and cecly-ph-dfgzmmt diastolic heart failure, dyslipidemia, hypertension, nvwzd-jj-vwoqyem renal failure. RECOMMENDATIONS: Continue to maintain with diuretic holiday and liberalize sodium intake as well as blood pressure control. MD MilianV/GUERDA /[id number]
--- NOTE | 2019-06-14 12:25 | NUR ---
EDUCATED ABOUT IMM, SIGNED, FILED IN CHART, WITH COPY LEFT WITH FAMILY AT BEDSIDE.
[2019-06-14] MEDS: CEFTRIAXONE SOD 1 GM/NS 50 ML 50 ML IV SCH (16:31)
[2019-06-14] MEDS: COLCHICINE 0.6 MG TAB PO SCH (17:55)
[2019-06-14] MEDS: CELECOXIB 100 MG CAP PO SCH (17:55)
--- NOTE | 2019-06-14 19:11 | NUR ---
PT IS RESTING IN BED WITH HIS AT BEDSIDE. RESPIRATION IS EVEN AND UNLABORED, NO DISTRESS NOTED. BED IN THE LOWEST POSITION, LOCKED, BED ALARM ON, AND CALL LIGHT WITHIN REACH. WILL CONTINUE TO MONITOR.
[2019-06-14] MEDS: METOPROLOL TARTRATE 25 MG TAB PO SCH (21:27)
[2019-06-14] MEDS: SIMVASTATIN 20 MG TAB PO SCH (21:27)
[2019-06-14] MEDS: MONTELUKAST SODIUM 10 MG TAB PO SCH (21:27)
[2019-06-15] VITALS (8 sets, daily range): BP systolic 120–171; BP diastolic 69–81
[2019-06-15] MEDS: ALBUTEROL/IPRATROPIUM 3 ML NEB NEB SCH ×4 (00:10→19:30)
--- NOTE | 2019-06-15 07:00 | NUR ---
RECEIVED AM REPORT FROM NURSE, MORNING ROUNDS DONE. PT IS SLEEPING, NO S/S OF DISTRESS. CALL LIGHT IS WITHIN REACH AND SIDE RAILS ARE UP. OXYGEN IS SET AT 3L VIA NC. DAUGHTER IS AT THE BEDSIDE
[2019-06-15] MEDS: BUDESONIDE/FORMOTEROL 160/4.5MCG INHALER INH SCH ×2 (07:40→19:30)
[2019-06-15] MEDS: CELECOXIB 100 MG CAP PO SCH ×2 (08:48→16:37)
[2019-06-15] MEDS: AZITHROMYCIN 250 MG TAB PO SCH (08:49)
[2019-06-15] MEDS: ENOXAPARIN 30 MG/0.3 ML SYR SC SCH (08:49)
[2019-06-15] MEDS: COLCHICINE 0.6 MG TAB PO SCH ×2 (08:49→16:37)
[2019-06-15] MEDS: POLYETHYLENE GLYCOL 3350 17 GM PACK PO SCH ×2 (08:57→16:37)
--- NOTE | 2019-06-15 13:31 | NUR ---
WITH [employer] TRANSLATION QUETA Araujo [id number] SPOKE WITH PT AND VIA SPEAKER PHONE ABOUT [facility] ORDER AND FACILITIES IN [facility], [facility], [facility] AND [facility]. PER THE CLINICAL PROGRAM COORDINATOR THE PT WAS NOT TELLING THE WHAT WE WERE SAYING AND THE KEPT ASKING IF THE PT CAN GO HOME WITH HOME HEALTH. PT DECLINED SNF AND STATES WOULD LIKE FOR THE DOCTOR OR NURSE TO CALL AND LET HER KNOW WHY HE CANT GO HOME. ADVISED NURSE OF CONVERSATION.
[2019-06-15] MEDS: METHYLPREDNISOLONE SOD SUCC 40 MG/ML VIAL 1ML IV SCH ×2 (13:37→21:25)
[2019-06-15] MEDS: CEFTRIAXONE SOD 1 GM/NS 50 ML 50 ML IV SCH (15:44)
--- NOTE | 2019-06-15 17:12 | NUR ---
Nutrition Follow-up Note RD Recommendation for Physician: -Continue diet as ordered Plan of Care: RD following, monitoring for tolerance and adequacy, diet education Nutrition reason for involvement: Follow up Primary Diagnose(s): asthma exacerbation, CHF PMH: PAF, congestive heart failure, diastolic, morbid obesity, obstructive sleep apnea, hypertension, asthma, diabetes type 2, chronic kidney disease Ht: 63in Wt: 283.5lb; 288lb BMI: 50.2kg/m2 IBW: 115lb +/- 10% RD Assessment: (06/15) Visited pt in the room. Pt ate 100% of lunch today. No GI complains reported. LBM 06/15. Current diet is appropriate and adequate. (06/08) Chart reviewed. Labs and meds reviewed. 63yo M, who was admitted for SOB. Visited pt in the room. Cameroonian speaking only. 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 No GI complains reported. No chewing or swallowing difficulty noted. Weight has been stable. Current Diet: Cardiac/ ADA 1800 Malnutrition Evaluation (06/08/2019) The patient does not meet criteria for a specified degree of malnutrition at this time. Will re-evaluate at follow-up as appropriate. Diet Education Needs Assessment: Diet education indicated, pt and were agreeable. Handout was provided in Cameroonian version. Nutrition Care Level: low Signed: Jacqueline Quintanilla, , RD, LD
--- NOTE | 2019-06-15 19:40 | NUR ---
PER DR BALBUENA START PT ON A-FIB PROTOCOL HEPARIN WEIGHT BASE DRIP, GIVE ASPIRIN 81MG TAB ONE TIME DOSE NOW, AND START DAILY TOMORROW, AND CONSENT FOR PERIPHERAL ANGIOGRAM AND INTERVENTION. WILL CONTINUE TO MONITOR.
[2019-06-15] MEDS ORDERED: HEPARIN SOD (PORCINE) 5,000 UNIT/ML VIAL IV ONE (20:00)
[2019-06-15] MEDS: HEPARIN 25,000 UNIT 1,000 UNIT in DEXTROSE 5% 250ML 250 ML IV SCH ×2 (20:10→21:53)
[2019-06-15 20:25] LABS: BASOPHILS % 0.1 % (0.0-1.0); EOSINOPHILS % 0.1 % (0.0-6.0); HEMATOCRIT 47.9 % (38.2-49.6); HEMOGLOBIN 15.4 g/dL (14.0-18.0); LYMPHOCYTES # (AUTO) 0.7 (1.0-3.2); LYMPHOCYTES % 8.9 % (18.0-39.1); MEAN CORPUSCULAR HEMOGLOBIN 32.5 pg (28-32); MEAN CORPUSCULAR HGB CONC 32.2 g/dL (31-35); MEAN CORPUSCULAR VOLUME 101.1 fL (81-99); MONOCYTES # (AUTO) 0.1 (0.2-0.8); MONOCYTES % 1.2 % (4.4-11.3); NEUTROPHILS # (AUTO) 6.5 (2.1-6.9); NEUTROPHILS % 89.3 % (38.7-80.0); PLATELET COUNT 182 x10e3/uL (140-360); RED BLOOD COUNT 4.74 x10e6/uL (4.3-5.7); RED CELL DISTRIBUTION WIDTH 14.5 % (11.7-14.4)
[2019-06-15] MEDS ORDERED: ASPIRIN 81 MG CHEW TAB PO ONE (20:30)
[2019-06-15 20:35] LABS: INR 0.94; PROTHROMBIN TIME 13.1 seconds (11.9-14.5)
[2019-06-15 20:36] LABS: PARTIAL THROMBOPLASTIN TIME 29.9 seconds (23.8-35.5)
[2019-06-15] MEDS: SIMVASTATIN 20 MG TAB PO SCH (21:25)
[2019-06-15] MEDS: METOPROLOL TARTRATE 25 MG TAB PO SCH (21:25)
[2019-06-15] MEDS: MONTELUKAST SODIUM 10 MG TAB PO SCH (21:25)
--- NOTE | 2019-06-15 22:00 | NUR ---
HEPARIN DRIP STARTED AT 10ML/HR. WILL CONTINUE TO MONITOR.
--- NOTE | 2019-06-15 23:17 | Progress Note ---
DATE: 06/15/2019 Cardiology Progress Note SUBJECTIVE: Sreedhar feels better overall with decreased shortness of breath. Denies any chest pain. He has been noticing discomfort to the left foot, worse with active or passive dorsiflexion. He continues to have good capillary refill. Arterial Dopplers were performed, please see below. OBJECTIVE: VITAL SIGNS: On exam temperature 97.8, heart rate 65, blood pressure 125/69, respiratory rate 20, and O2 saturation 95%. BMI 51. GENERAL: In no acute distress, alert. NECK: No JVD. No carotid bruit. CHEST: Clear to auscultation. CARDIOVASCULAR: Regular rate and rhythm. Normal S1 and S2. No S3, no S4. No murmurs or rubs. ABDOMEN: Soft, nontender, and nondistended. Bowel sounds positive. EXTREMITIES: No edema. Warm distal extremities, palpable right PT and DP. His left foot is euthermic to exam with good capillary refill. There is a faint dorsalis pedis pulse. The posterior tibialis is nonpalpable. He has discomfort to passive as well as active dorsiflexion, and pain to light touch to the anterior aspect of ankle. LABORATORY DATA: Studies reviewed; sodium 138, potassium 4.7, chloride 96, bicarbonate 34, BUN 77, creatinine 2.07, and glucose 95. White blood cells 9, hemoglobin 15.6, and platelets 192. INR one, PT 13.7, PTT 31.5. AST 14, ALT 18, and alkaline phosphatase 55, total bilirubin 0.3. MEDICATIONS: Cardiovascular medications reviewed; currently on simvastatin 10 mg q.h.s., metoprolol tartrate 25 mg q.h.s., colchicine trial initiated today 0.6 mg b.i.d., and celecoxib 100 mg b.i.d. ASSESSMENT AND PLAN: 1. A 63-year-old man with Pickwickian syndrome extreme morbid obesity with BMI of 51, presents with asthma exacerbation. 2. Chronic diastolic heart failure with possible initial acute exacerbation component, now euvolemic. 3. Acute on chronic renal failure. 4. Left leg and ankle discomfort. 5. Differential diagnosis includes gout attack versus limb ischemia. On exam, warm to touch with faint pulses. Reviewed arterial Dopplers, which are concerning for multilevel peripheral arterial disease, particularly of concern to the left common femoral artery down, monophasic waveforms are observed with an occluded posterior tibial and patent anterior tibial monophasic throughout. Discussed with one angiography and possible intervention. We will initiate heparin drip for now. The patient started on colchicine trial, assess response. We will request flue dust laborer availability. For now continue aspirin and rest of the cardiovascular medications. He will be at elevated risk for contrast nephropathy given acute kidney injury, now improving, on baseline chronic kidney disease. Rehydration will be performed. Ray Sood MD AFV/MODL /[id number]
[2019-06-16] VITALS (8 sets, daily range): BP systolic 119–146; BP diastolic 56–82
[2019-06-16 04:12] LABS: HEMATOCRIT 49.1 % (38.2-49.6); LYMPHOCYTES # (AUTO) 0.6 (1.0-3.2); LYMPHOCYTES % 7.7 % (18.0-39.1); MEAN CORPUSCULAR HEMOGLOBIN 32.9 pg (28-32); MEAN CORPUSCULAR HGB CONC 32.6 g/dL (31-35); MONOCYTES # (AUTO) 0.1 (0.2-0.8); MONOCYTES % 1.3 % (4.4-11.3); NEUTROPHILS # (AUTO) 6.9 (2.1-6.9); NEUTROPHILS % 90.5 % (38.7-80.0); PLATELET COUNT 172 x10e3/uL (140-360); RED BLOOD COUNT 4.86 x10e6/uL (4.3-5.7); RED CELL DISTRIBUTION WIDTH 14.3 % (11.7-14.4)
[2019-06-16 04:26] LABS: ANION GAP 13.3 mmol/L (8-16); CALCIUM 8.9 mg/dL (8.4-10.2); CREATININE, SERUM 1.88 mg/dL (0.72-1.25); POTASSIUM 5.3 mmol/L (3.5-5.1)
--- NOTE | 2019-06-16 04:39 | NUR ---
PTT IS 56.0. NO CHANGES MADE. DRIP GOING AT 10ML/HR. WILL CONTINUE TO MONITOR.
--- NOTE | 2019-06-16 06:56 | NUR ---
RECEIVED PATIENT RESTING IN BED. RESPIRATIONS EVEN AND UNLABORED. NO ACUTE DISTRESS NOTED. DENIES PAIN OR DISCOMFORT AT THIS TIME. CALL LIGHT WITHIN REACH. BED IN THE LOWEST POSITION.
[2019-06-16 07:05] LABS: PLATELET ESTIMATE ADEQUATE; PLATELET MORPHOLOGY COMMENT NORMAL; RBC MORPHOLOGY COMMENT NORMAL
[2019-06-16] MEDS: ALBUTEROL/IPRATROPIUM 3 ML NEB NEB SCH ×4 (07:35→18:29)
[2019-06-16] MEDS: BUDESONIDE/FORMOTEROL 160/4.5MCG INHALER INH SCH ×2 (07:35→18:45)
[2019-06-16] MEDS: METHYLPREDNISOLONE SOD SUCC 40 MG/ML VIAL 1ML IV SCH ×2 (08:33→20:44)
[2019-06-16] MEDS: CELECOXIB 100 MG CAP PO SCH (09:00)
[2019-06-16] MEDS: COLCHICINE 0.6 MG TAB PO SCH (09:00)
[2019-06-16] MEDS: ASPIRIN 81 MG CHEW TAB PO SCH (09:00)
[2019-06-16] MEDS: POLYETHYLENE GLYCOL 3350 17 GM PACK PO SCH ×2 (09:00→16:25)
[2019-06-16] MEDS: AZITHROMYCIN 250 MG TAB PO SCH (09:01)
--- NOTE | 2019-06-16 11:11 | NUR ---
EDUCATED ABOUT IMM, SIGNED, FILED IN CHART, WITH COPY LEFT WITH FAMILY AT BEDSIDE.
--- NOTE | 2019-06-16 13:26 | Progress Note ---
DATE: 06/16/2019 Cardiology Progress Note SUBJECTIVE: Denies any chest pain or shortness of breath. He continues to have discomfort to the left ankle on dorsiflexion and to light touch as well as when standing. He, however, denies any discomfort to flexion of the left toes or palpation of the forefoot or the plantar aspect of the foot. He continues to remain with normal motor and sensory/gross assessment. He has positive Doppler pulses. OBJECTIVE: VITAL SIGNS: Temperature 96.8, heart rate 67, blood pressure 129/73, respiratory rate 20, and O2 saturation 95%. BMI 51.01. GENERAL: In no acute distress. Alert. NECK: No JVD. CHEST: Clear to auscultation. CARDIOVASCULAR: Regular rate and rhythm. Normal S1 and S2. No S3. No S4. ABDOMEN: Soft and nontender. EXTREMITIES: No edema. Warm distal extremities. Good capillary refill distally. Palpable pulses/decreased to lower extremities. MEDICATIONS: Cardiovascular medications reviewed. 1. Simvastatin 10 mg at bedtime. 2. Aspirin 81 mg daily. 3. Metoprolol tartrate 25 mg at bedtime. 4. Heparin IV. STUDIES: Reviewed. Sodium 135, potassium 5.1, chloride 99, bicarbonate 28, BUN 51, creatinine 1.8, and glucose 173. White blood cells 7.5, hemoglobin 16, and platelets 172. INR 0.94, PT 31.1, and PTT 56. AST 14, ALT 18, alkaline phosphatase 55, and total bilirubin 0.3. ASSESSMENT: A 63-year-old man with morbid obesity, Pickwickian syndrome, asthma exacerbation with acute on chronic diastolic heart failure, acute kidney injury on chronic kidney disease, is noted to have left ankle area discomfort, arterial Doppler is concerning for aortoiliac or common femoral disease to left lower extremity with monophasic waveforms, otherwise multilevel disease with findings suggestive of vogye-zdn-ctsv level disease to both lower extremities. Differential includes gout versus limb ischemia. RECOMMENDATIONS: 1. Continue heparin and aspirin. 2. Continue beta-maik and statin. 3. I have discussed angiography and possible endovascular revascularization with the patient. track repair laborer is currently unavailable, which is closed for today and tomorrow a.m. with availability opening in the p.m. The patient's clinical exam remains stable on current treatment, we will continue, and I have discussed if worsening, possible transfer for expedited care in alternative facilities if necessary. Otherwise, he has been placed on schedule for p.m. in the cathode ray tube assembler. MD TEMITOPE Christine/MODL /[id number]
[2019-06-16] MEDS: CEFTRIAXONE SOD 1 GM/NS 50 ML 50 ML IV SCH (16:25)
--- NOTE | 2019-06-16 19:29 | NUR ---
Awake, alert. Respiration even and unlabored without SOB. Report given to night nurse. Call light in reach.
[2019-06-16] MEDS: MONTELUKAST SODIUM 10 MG TAB PO SCH (20:44)
[2019-06-16] MEDS: METOPROLOL TARTRATE 25 MG TAB PO SCH (20:44)
[2019-06-16] MEDS: SIMVASTATIN 20 MG TAB PO SCH (20:44)
[2019-06-17] VITALS (8 sets, daily range): BP systolic 116–147; BP diastolic 66–75
[2019-06-17] MEDS: ALBUTEROL/IPRATROPIUM 3 ML NEB NEB SCH ×4 (00:04→19:05)
[2019-06-17] MEDS: BUDESONIDE/FORMOTEROL 160/4.5MCG INHALER INH SCH ×2 (07:20→19:00)
[2019-06-17] MEDS: SODIUM CHLORIDE 0.9% 1000ML 1,000 ML IV SCH ×2 (07:43→16:01)
[2019-06-17 08:32] LABS: ANION GAP 12.4 mmol/L (8-16); CALCIUM 8.8 mg/dL (8.4-10.2); CREATININE, SERUM 1.61 mg/dL (0.72-1.25); POTASSIUM 5.4 mmol/L (3.5-5.1)
[2019-06-17] MEDS: ASPIRIN 81 MG CHEW TAB PO SCH (09:03)
[2019-06-17] MEDS: METHYLPREDNISOLONE SOD SUCC 40 MG/ML VIAL 1ML IV SCH ×2 (09:03→20:56)
[2019-06-17] MEDS: POLYETHYLENE GLYCOL 3350 17 GM PACK PO SCH ×2 (09:04→16:01)
[2019-06-17] MEDS: AZITHROMYCIN 250 MG TAB PO SCH (09:04)
--- NOTE | 2019-06-17 10:47 | NUR ---
SPOKE WITH PT ABOUT SNF WITH CHARGE NURSE ENRRIQUE TO INTERPRET PT STATES HE ABSOLUTELY DOES NOT WANT TO GO TO A FACILITY AND WANTS TO GO HOME, STATES HAD OXYGEN PRIOR WITH [facility] AND CANNOT REMEMBER WHICH HOME HEALTH CAME TO SEE HIM, GAVE CHOICES IN NETWORK OF HOME HEALTHS AND STATES HAS NO PREFERENCE, GOT ON HOME AND SHE UNDERSTANDS THE LEVEL OF CARE THE PT NEEDS AND REQUESTS HE GOES HOME. LET CM KNOW.
[2019-06-17] MEDS ORDERED: LIDOCAINE HCL 2% LOCAL 20 ML VIAL ONE ×2 (13:20→14:18)
[2019-06-17] MEDS ORDERED: HEPARIN SOD/SOD CHLORIDE 2,000 ML ONE (13:21)
[2019-06-17] MEDS ORDERED: IOPAMIDOL 300MG/ML 100 ML INFUS..BTL IV ONE (13:21)
[2019-06-17] MEDS ORDERED: MIDAZOLAM HCL 2 MG/2 ML VIAL ONE (14:04)
[2019-06-17] MEDS ORDERED: FENTANYL CITRATE/PF 100MCG/2 ML INJ ONE (14:05)
[2019-06-17] MEDS ORDERED: HEPARIN SOD (PORCINE) 1000 UNIT/ML 30ML ONE (14:38)
[2019-06-17] MEDS ORDERED: NITROGLYCERIN/D5W 200 MCG/ML 250 ML ONE (14:38)
[2019-06-17] MEDS ORDERED: ASPIRIN 325 MG TAB ONE (15:29)
[2019-06-17] MEDS ORDERED: CLOPIDOGREL BISULFATE 75 MG TAB ONE (15:29)
[2019-06-17] MEDS: CEFTRIAXONE SOD 1 GM/NS 50 ML 50 ML IV SCH (15:52)
[2019-06-17] MEDS ORDERED: SODIUM CHLORIDE 0.9% 1000ML 1,000 ML IV SCH (16:09)
--- NOTE | 2019-06-17 18:53 | Progress Note ---
DATE: 06/17/2019 Cardiology Progress Note SUBJECTIVE: Denies chest pain or shortness of breath. 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 OBJECTIVE: VITAL SIGNS: Temperature 95.8, heart rate 65, blood pressure 147/75, respiratory rate 22, O2 saturation 96%, BMI 51. GENERAL: In no acute distress, alert. NECK: No JVD, morbid obese. CHEST: Clear to auscultation. CARDIOVASCULAR: Regular rate and rhythm. Normal S1 and S2. ABDOMEN: Soft, morbidly obese. EXTREMITIES: No edema. Warm distal extremities. CARDIOVASCULAR MEDICATIONS: Reviewed. Starting clopidogrel 75 mg daily, aspirin 81 mg daily, metoprolol tartrate 25 mg at bedtime, simvastatin 10 mg at bedtime. STUDIES: Reviewed. Sodium 135, potassium 5.4, chloride 99, bicarbonate 29, BUN 50, creatinine 1.6, glucose 184. White blood cell 7.8, hemoglobin 16, platelets 172. INR 0.9, AST 14, ALT 18, alkaline phosphatase 55. 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 RECOMMENDATIONS: 1. Aspirin and Plavix. 2. Statin. 3. Beta maik. 4. Continue hydration. 5. Monitor renal function. 6. Monitor potassium and treat accordingly as necessary, maintain a low-potassium diet. MD TEMITOPE Christine/GUERDA /[id number]
[2019-06-17] MEDS: METOPROLOL TARTRATE 25 MG TAB PO SCH (20:56)
[2019-06-17] MEDS: SIMVASTATIN 20 MG TAB PO SCH (20:56)
[2019-06-17] MEDS: MONTELUKAST SODIUM 10 MG TAB PO SCH (20:56)
[2019-06-18] VITALS (7 sets, daily range): BP systolic 102–122; BP diastolic 53–78
[2019-06-18] MEDS: SODIUM BICARBONATE 8.4% 50 ML in SODIUM CHLORIDE 0.45% 1,000 ML IV SCH ×2 (01:00→02:00)
[2019-06-18] MEDS: SODIUM CHLORIDE 0.9% 1000ML 1,000 ML IV SCH (05:08)
[2019-06-18 05:38] LABS: BASOPHILS % 0.1 % (0.0-1.0); HEMATOCRIT 45.3 % (38.2-49.6); HEMOGLOBIN 14.1 g/dL (14.0-18.0); LYMPHOCYTES # (AUTO) 0.6 (1.0-3.2); LYMPHOCYTES % 5.2 % (18.0-39.1); MEAN CORPUSCULAR HGB CONC 31.1 g/dL (31-35); MONOCYTES # (AUTO) 0.6 (0.2-0.8); MONOCYTES % 5.2 % (4.4-11.3); NEUTROPHILS # (AUTO) 10.1 (2.1-6.9); NEUTROPHILS % 88.9 % (38.7-80.0); PLATELET COUNT 233 x10e3/uL (140-360); RED CELL DISTRIBUTION WIDTH 14.4 % (11.7-14.4)
[2019-06-18 06:04] LABS: ANION GAP 11.4 mmol/L (8-16); CALCIUM 8.3 mg/dL (8.4-10.2); CREATININE, SERUM 1.53 mg/dL (0.72-1.25); POTASSIUM 5.4 mmol/L (3.5-5.1)
[2019-06-18] MEDS: ALBUTEROL/IPRATROPIUM 3 ML NEB NEB SCH ×4 (07:23→19:00)
--- NOTE | 2019-06-18 07:23 | NUR ---
RECEIVED PATIENT IN BEDSIDE REPORT. PATIENT IS RESTING IN BED AT THIS TIME. NO PAIN REPORTED. NO S&S OF DISTRESS NOTED. BED LOCKED IN LOWEST POSITION, SIDE RAILS UPX2, CALL LIGHT IN REACH.
[2019-06-18] MEDS: BUDESONIDE/FORMOTEROL 160/4.5MCG INHALER INH SCH ×2 (07:35→19:00)
[2019-06-18 08:24] LABS: LYMPHOCYTES % (MANUAL) 11 % (19-48); MONOCYTES % (MANUAL) 5 % (3.4-9.0); NEUTROPHILS % (MANUAL) 84 % (40-74); PLATELET ESTIMATE ADEQUATE; PLATELET MORPHOLOGY COMMENT NORMAL; RBC MORPHOLOGY COMMENT NORMAL
[2019-06-18] MEDS ORDERED: HYDROCODONE/APAP 10MG-325MG TAB PO PRN (09:15)
[2019-06-18] MEDS ORDERED: SOD POLYSTYRENE SULFONATE SUSP 15 GM/60 ML BTL PO ONE (09:15)
[2019-06-18] MEDS: CLOPIDOGREL BISULFATE 75 MG TAB PO SCH (11:16)
[2019-06-18] MEDS: ASPIRIN 325 MG TAB PO SCH (11:16)
[2019-06-18] MEDS: AZITHROMYCIN 250 MG TAB PO SCH (11:16)
[2019-06-18] MEDS: POLYETHYLENE GLYCOL 3350 17 GM PACK PO SCH ×2 (11:16→17:00)
[2019-06-18] MEDS: METHYLPREDNISOLONE SOD SUCC 40 MG/ML VIAL 1ML IV SCH (11:17)
--- NOTE | 2019-06-18 12:55 | NUR ---
EDUCATED ABOUT IMM, SIGNED, FILED IN CHART, WITH COPY LEFT WITH FAMILY AT BEDSIDE.
--- NOTE | 2019-06-18 12:57 | NUR ---
EDUCATED ABOUT IMM, SIGNED, FILED IN CHART, WITH COPY LEFT WITH FAMILY AT BEDSIDE.
--- NOTE | 2019-06-18 13:43 | Operative Report ---
DATE OF PROCEDURE: 06/18/2019 SURGEON: Ray Sood MD Peripheral Angiography and Intervention PROCEDURES PERFORMED: 1. Abdominal aortogram, selective lower extremity angiography, bilateral. 2. Third order catheter placement from right common femoral artery to left common femoral artery and additional third order catheter placement from right common femoral artery to left popliteal artery. 3. Ultrasound-guided access. 4. Left external iliac artery SUPPLIER ENGINEER revascularization with CUSTOMER SERVICE AND SALES CONSULTANT and stent, LifeStar 8 x 80 self expanding stent. PROCEDURE COMPLICATIONS: None. ESTIMATED BLOOD LOSS: Less than 15 mL. PROCEDURE SUMMARY: After consent was obtained, the patient was prepped and draped in a sterile fashion. The right femoral site was locally infiltrated with 2% lidocaine and access was obtained. A 6-New Zealander sheath was placed. An Omni Flush catheter was positioned in the distal descending abdominal aorta. Angiography revealed a 50% area of stenosis of the common iliac artery, otherwise 100% occlusion of the left external iliac artery. There was no significant pressure gradient across the area of stenosis of the right common iliac artery. Otherwise, luminal irregularities were noted in the visualized segments of the abdominal aorta and rest of iliac vessels. Collaterals from the left internal iliac artery filled the left common femoral artery. The lower extremities were additionally visualized with additional catheter advancement to left common femoral artery, left popliteal artery and then catheter retrieval at the end of the procedure to right external iliac artery. Luminal irregularities are noted throughout the common femoral or profunda femoris, SFA, popliteal arteries and the itbtr-iix-gimx vessels seem to be patent, however, not well visualized due to slow and faint contrast flow. The left anterior tibial particularly was not well visualized, but at least two-vessel runoff of PT and peroneal to the left lower extremity were visualized. It was decided to proceed with intervention to the left external iliac artery, which was performed with heparin, aspirin, Plavix, NaviCross catheter and a J-tip, and a Glidewire was used to advance across the chronic total occlusion area. Catheter advancement was confirmed. Distal to stenosis to be intraluminal for position and then this was followed by Advantage catheter exchange and predilatation with a 6.0 x 40 Ultraverse balloon anteriorly across the target area inflated to nominal pressure. This was followed by LifeStar 8 x 80 self expanding stent deployed across the target lesion. Postdilated with a 6.0 balloon with final angiography, LEONEL-3 flow, no residual perforations or flow-limiting dissections, less than 10% residual stenosis, and linear flow re-established down to the left foot. CONCLUSION: Left external iliac artery CUSTOMER SERVICE AND SALES CONSULTANT and stent for a chronic total occlusion. RECOMMENDATION: Aspirin and Plavix at bedrest. MD TEMITOPE Christine/MODL /[id number] MTDD
--- NOTE | 2019-06-18 14:31 | NUR ---
PATIENT REFUSING STAFF TO CHECK HIS DIAPER TO CLEAN HIM. WILL NOT ALLOW ANYONE TO CHECK DIAPER. REMINDED PATIENT TO CALL WHEN HE NEEDS CHANGING SO HIS SKIN CAN STAY HEALTHY. PATIENT VERBALIZED UNDERSTANDING.
--- NOTE | 2019-06-18 15:18 | NUR ---
PATIENT CHANGED, HAD LARGE BM. PATIENT STATED HE FELT LIKE HIS DRESSING TO R GROIN WAS BLEEDING. BLOOD TO DRESSING IS THE SAME THIS MORNING WHEN ASSESSED WITH MD OCAMPO. HELD PRESSURE FOR 5 MINUTES JUST IN CASE. NO OTHER NEEDS EXPRESSED AT THIS TIME.
[2019-06-18] MEDS: CEFTRIAXONE SOD 1 GM/NS 50 ML 50 ML IV SCH (16:55)
--- NOTE | 2019-06-18 18:29 | Progress Note ---
DATE: 06/18/2019 Cardiology Progress Note SUBJECTIVE: No complaints. OBJECTIVE: VITAL SIGNS: Temperature 96.8, heart rate 86, blood pressure 102/64, respiratory rate 20, O2 saturation 99%. BMI 51. GENERAL: In no acute distress, alert. NECK: No JVD. CHEST: Clear to auscultation. CARDIOVASCULAR: Regular rate and rhythm. Normal S1, S2. No S3, no S4. ABDOMEN: Soft, nontender. EXTREMITIES: No edema. Warm distal extremities. CARDIOVASCULAR MEDICATIONS: Reviewed. 1. Metoprolol tartrate 25 mg daily. 2. Simvastatin 10 mg at bedtime. 3. Aspirin 325 mg daily. 4. Clopidogrel 75 mg daily. LABORATORY DATA: Studies reviewed, significant for potassium 5.4, creatinine 1.5, hemoglobin 14, platelets 233. ASSESSMENT: A 63-year-old man with asthma exacerbation, morbid obesity, Pickwickian syndrome, acute on chronic diastolic heart failure, acute on chronic renal failure, now status post recovering acute kidney injury and severe peripheral vascular disease with acute on chronic limb ischemia, now status post left external iliac artery PST MANAGER and stent. Recommend close monitoring of potassium and medical treatment as necessary. Continue dual antiplatelet therapy, statin therapy, blood pressure optimization, and monitor volume status. MD TEMITOPE Christine/GUERDA /[id number]
--- NOTE | 2019-06-18 19:05 | NUR ---
Pt visited in room during nursing rounds. Patient alert and oriented x3. Mostly tuvaluan speaking only. at bedside. Pt denies any discomfort except he feels some soreness on right groin (s/p heart catheterization). Pt states he feels quite weak ambulating at this time. Dressing (gauze and tegaderm) in place and dry. Pt on IVF (1/2NS with Na bicarb at 100ml/hr). On 4L NC humidified. Call campos within reach.
[2019-06-18] MEDS: MONTELUKAST SODIUM 10 MG TAB PO SCH (21:14)
[2019-06-18] MEDS: SIMVASTATIN 20 MG TAB PO SCH (21:14)
[2019-06-18] MEDS: METOPROLOL TARTRATE 25 MG TAB PO SCH (21:15)
[2019-06-19] VITALS (7 sets, daily range): BP systolic 103–131; BP diastolic 52–66
[2019-06-19 06:38] LABS: BASOPHILS % 0.1 % (0.0-1.0); HEMATOCRIT 40.5 % (38.2-49.6); HEMOGLOBIN 12.6 g/dL (14.0-18.0); LYMPHOCYTES # (AUTO) 1.2 (1.0-3.2); LYMPHOCYTES % 11.9 % (18.0-39.1); MEAN CORPUSCULAR HEMOGLOBIN 32.6 pg (28-32); MEAN CORPUSCULAR HGB CONC 31.1 g/dL (31-35); MEAN CORPUSCULAR VOLUME 104.7 fL (81-99); MONOCYTES # (AUTO) 0.9 (0.2-0.8); MONOCYTES % 8.7 % (4.4-11.3); NEUTROPHILS % 78.7 % (38.7-80.0); PLATELET COUNT 200 x10e3/uL (140-360); RED BLOOD COUNT 3.87 x10e6/uL (4.3-5.7); RED CELL DISTRIBUTION WIDTH 14.6 % (11.7-14.4)
[2019-06-19] MEDS: METHYLPREDNISOLONE SOD SUCC 40 MG/ML VIAL 1ML IV SCH (06:47)
[2019-06-19 06:50] LABS: ANION GAP 9.3 mmol/L (8-16); CALCIUM 7.7 mg/dL (8.4-10.2); CREATININE, SERUM 1.28 mg/dL (0.72-1.25); POTASSIUM 5.3 mmol/L (3.5-5.1)
[2019-06-19] MEDS: BUDESONIDE/FORMOTEROL 160/4.5MCG INHALER INH SCH ×2 (07:00→18:55)
--- NOTE | 2019-06-19 07:00 | NUR ---
RECEIVED PATIENT IN BEDSIDE REPORT. PATIENT RESTING IN BED AT THIS TIME. NO PAIN REPORTED. DRESSING TO R GROIN IS UNCHANGED SINCE YESTERDAY, SATURATED WITH OLD BLOOD. NO S&S OF DISTRESS NOTED. BED LOCKED IN LOWEST POSITION, SIDE RAILS UPX2, CALL LIGHT IN REACH.
[2019-06-19] MEDS ORDERED: METHYLPREDNISOLONE SOD SUCC 40 MG/ML VIAL 1ML IV SCH (07:30)
[2019-06-19] MEDS: ALBUTEROL/IPRATROPIUM 3 ML NEB NEB SCH ×4 (07:30→18:55)
[2019-06-19] MEDS: ASPIRIN 325 MG TAB PO SCH (08:52)
[2019-06-19] MEDS: POLYETHYLENE GLYCOL 3350 17 GM PACK PO SCH ×4 (08:52→18:10)
[2019-06-19] MEDS: CLOPIDOGREL BISULFATE 75 MG TAB PO SCH (08:52)
[2019-06-19] MEDS: SODIUM BICARBONATE 8.4% 50 ML in SODIUM CHLORIDE 0.45% 1,000 ML IV SCH ×2 (12:31→23:17)
--- NOTE | 2019-06-19 16:01 | NUR ---
PATIENT UP IN CHAIR WITH PT PREVIOUSLY. ASSISTED BACK TO BED AT THIS TIME WITH HELP OF ONE STAFF MEMBER. PATIENT STRONGER AND STEADIER THAN YESTERDAY WHEN ASSISTED BACK TO BED.
[2019-06-19] MEDS: CEFTRIAXONE SOD 1 GM/NS 50 ML 50 ML IV SCH (16:08)
--- NOTE | 2019-06-19 18:55 | Progress Note ---
DATE: Cardiology Progress Note SUBJECTIVE: No complaints. OBJECTIVE: VITAL SIGNS: Temperature 96.9, heart rate 93, blood pressure 109/52, and saturation 98%. GENERAL: In no acute distress. Alert. NECK: No JVD. CHEST: Clear to auscultation. CARDIOVASCULAR: Regular rate and rhythm. Normal S1 and S2. ABDOMEN: Soft and nontender. EXTREMITIES: No edema. LABORATORY DATA: Potassium 4.3 and creatinine 1.2. Hemoglobin 12.6 and platelets 200. MEDICATIONS: Cardiovascular medication reviewed: 1. Aspirin 81 mg daily. 2. Clopidogrel 75 mg daily. 3. Metoprolol tartrate 25 mg. 4. Simvastatin 10 mg at bedtime. ASSESSMENT: 1. A 63-year-old man with peripheral arterial disease, status post revascularization external iliac artery self expanding stent. 2. Acute on chronic diastolic heart failure. 3. Asthma. 4. Morbid obesity. 5. Pickwickian syndrome. RECOMMENDATIONS: 1. Continue current cardiovascular medications. 2. Okay to discharge from a cardiovascular standpoint. MD TEMITOPE Christine/GUERDA /[id number] MTDD
--- NOTE | 2019-06-19 19:20 | NUR ---
Pt visited in room during nursing rounds. Patient alert and oriented x3. Mostly citizen of [place] speaking only. at bedside. Pt denies any discomfort or dyspnea. Dressing (gauze and tegaderm) in place and dry on right groin. Pt on IVF (1/2NS with Na bicarb at 100ml/hr). On 4L NC humidified. Call campos within reach.
[2019-06-19] MEDS: MONTELUKAST SODIUM 10 MG TAB PO SCH (20:50)
[2019-06-19] MEDS: SIMVASTATIN 20 MG TAB PO SCH (20:50)
[2019-06-19] MEDS: METOPROLOL TARTRATE 25 MG TAB PO SCH (20:50)
--- NOTE | 2019-06-19 23:00 | NUR ---
Patient's diaper changed. Perineal and buttock areas cleaned with wipes. New diapers placed on patient.
[2019-06-20] VITALS (7 sets, daily range): BP systolic 108–141; BP diastolic 55–66
[2019-06-20] MEDS: ALBUTEROL/IPRATROPIUM 3 ML NEB NEB SCH ×4 (00:30→19:00)
--- NOTE | 2019-06-20 02:00 | NUR ---
Patient's diaper changed. Perineal and buttock areas cleaned with wipes. New diapers placed on patient.
--- NOTE | 2019-06-20 03:58 | NUR ---
Gauze and tegaderm removed on right groin. Site appear clean and dry. No bleeding noted. Hematoma still evident around site
--- NOTE | 2019-06-20 05:30 | NUR ---
Patient's diaper changed. Perineal and buttock areas cleaned with wipes. New diapers placed on patient.
[2019-06-20] MEDS: METHYLPREDNISOLONE SOD SUCC 40 MG/ML VIAL 1ML IV SCH (06:40)
[2019-06-20] MEDS: BUDESONIDE/FORMOTEROL 160/4.5MCG INHALER INH SCH ×2 (07:43→19:00)
--- NOTE | 2019-06-20 08:20 | NUR ---
patient resting in bed, on Oxygen , no distress noted
[2019-06-20] MEDS: ASPIRIN 325 MG TAB PO SCH (08:48)
[2019-06-20] MEDS: POLYETHYLENE GLYCOL 3350 17 GM PACK PO SCH ×2 (08:48→17:50)
[2019-06-20] MEDS: CLOPIDOGREL BISULFATE 75 MG TAB PO SCH (08:48)
[2019-06-20] MEDS ORDERED: LACTULOSE SYRUP 20 GM/30 ML UDC PO ONE (10:15)
[2019-06-20] MEDS ORDERED: SOD POLYSTYRENE SULFONATE SUSP 15 GM/60 ML BTL PO ONE (10:15)
--- NOTE | 2019-06-20 13:02 | Diagnostic Imaging Report ---
EXAMINATION: Right hip and AP pelvis Films CLINICAL HISTORY:Right hip pain COMPARISON: None. DISCUSSION: Unable to assess left femoral neck on AP pelvis views due to projection. The bones are well-mineralized. No acute, displaced fractures or dislocations in the right hip. No gross soft tissue abnormalities. No osteolytic or osteoblastic lesions. Vascular stent projects in the left pelvis. Minimal degenerative changes in the right hip joint. IMPRESSION: 1. No acute abnormalities. Signed by: Dr. Romario Hughes M.D. on 06/20/2019 12:59 PM
[2019-06-20] MEDS: SODIUM BICARBONATE 8.4% 50 ML in SODIUM CHLORIDE 0.45% 1,000 ML IV SCH (13:22)
--- NOTE | 2019-06-20 15:20 | NUR ---
Visit made by the Spiritual Care Department Pastoral Visitor, Yan Adrian, PV provided pastoral presence, hospitality, and supportive listening. Pastoral Visitor informed pt/family of the scope of Orthopedics Pediatric Physician Services and availability. CLARENCE BRAUN Obstetrics Nurse Spiritual Care Department O: [phone] Pager: [phone] ([phone] number calling from)
[2019-06-20] MEDS: CEFTRIAXONE SOD 1 GM/NS 50 ML 50 ML IV SCH (15:39)
--- NOTE | 2019-06-20 19:15 | NUR ---
Pt visited in room during nursing rounds. Patient alert and oriented x3. Mostly mohawk speaking only. at bedside. Pt denies any discomfort or dyspnea. Hematoma still evident on right groin and spread across right hip and scrotal area but feel soft to touch and not tender. Pt on IVF (1/2NS with Na bicarb at 100ml/hr). On 4L NC humidified. Call campos within reach.
[2019-06-20] MEDS: MONTELUKAST SODIUM 10 MG TAB PO SCH (20:22)
[2019-06-20] MEDS: SIMVASTATIN 20 MG TAB PO SCH (20:22)
[2019-06-20] MEDS: METOPROLOL TARTRATE 25 MG TAB PO SCH (20:22)
--- NOTE | 2019-06-20 22:10 | NUR ---
Perineal and buttock area cleaned. Diaper change done.
--- NOTE | 2019-06-20 23:59 | Progress Note ---
DATE: 06/20/2019 Cardiology Progress note SUBJECTIVE: Denies chest pain or shortness of breath. OBJECTIVE: VITAL SIGNS: Reviewed and stable. GENERAL: No acute distress. Alert. NECK: No JVD. CHEST: Clear to auscultation. CARDIOVASCULAR: Regular rate and rhythm. Normal S1, S2. ABDOMEN: Soft. EXTREMITIES: No edema. Warm distal extremities. STUDIES: Reviewed. ASSESSMENT: A 63-year-old man with asthma exacerbation, acute on chronic diastolic heart failure, morbid obesity, Pickwickian syndrome and CAD, status post left external iliac artery and self expanding stent for chronic total occlusion, chronic kidney disease. PLAN: 1. Continue dual antiplatelet therapy, statin, beta-maik, diuretics as needed. 2. Okay to discharge from a cardiovascular standpoint. MD MilianV/MODL /[id number]
[2019-06-21] VITALS (7 sets, daily range): BP systolic 103–125; BP diastolic 54–72
[2019-06-21] MEDS: ALBUTEROL/IPRATROPIUM 3 ML NEB NEB SCH ×5 (00:14→19:38)
[2019-06-21] MEDS: SODIUM BICARBONATE 8.4% 50 ML in SODIUM CHLORIDE 0.45% 1,000 ML IV SCH (00:45)
--- NOTE | 2019-06-21 07:51 | NUR ---
The pt. was recieed in bed awake and alert. The pt. reports pain of 8/10 and has been recently medicated for pain.
[2019-06-21] MEDS ORDERED: PREDNISONE 10 MG TAB PO SCH (09:00)
[2019-06-21] MEDS: ASPIRIN 325 MG TAB PO SCH (09:37)
[2019-06-21] MEDS: POLYETHYLENE GLYCOL 3350 17 GM PACK PO SCH ×2 (09:37→17:00)
[2019-06-21] MEDS: CLOPIDOGREL BISULFATE 75 MG TAB PO SCH (09:37)
--- NOTE | 2019-06-21 09:37 | NUR ---
The pt. refused blood draw this morning.
--- NOTE | 2019-06-21 11:07 | Progress Note ---
DATE: 06/21/2019 Cardiology Progress Note SUBJECTIVE: No complaints. OBJECTIVE: VITAL SIGNS: Temperature 96 degree, heart rate 50, respiratory rate 18, blood pressure 121/72, O2 saturation 98%. GENERAL: No acute distress. Alert. NECK: No JVD. CHEST: Clear to auscultation. CARDIOVASCULAR: Regular rate and rhythm. Normal S1, S2. ABDOMEN: Soft, nontender. EXTREMITIES: No edema. CARDIOVASCULAR MEDICATIONS: Reviewed. Clopidogrel 75 mg daily, aspirin 325 mg daily, simvastatin 10 mg at bedtime, metoprolol tartrate 25 mg at bedtime. LABORATORY DATA: Studies reviewed. White blood cells 10.2, hemoglobin 12.6, platelets 200. Sodium 139, potassium 5.3, chloride 101, bicarbonate 34, BUN 38, creatinine 1.2, glucose 101, calcium 7.7, CK 123. TELEMETRY: Sinus bradycardia. ASSESSMENT: 1. A 63-year-old man with peripheral vascular disease, status post left external iliac artery stent, acute on chronic diastolic heart failure, now improved. 2. Morbid obesity. 3. Asthma exacerbation, now improved. 4. Pickwickian syndrome. 5. Coronary artery disease. 6. Chronic kidney disease. RECOMMENDATIONS: 1. Switch aspirin to 81 mg daily. 2. Switch metoprolol to 12.5 mg every 12 hours with holding parameters. 3. Continue rest of cardiovascular medication. 4. Okay to discharge from a cardiovascular stand. MD TEMITOPE Christine/GUERDA /[id number]
[2019-06-21] MEDS: BUDESONIDE/FORMOTEROL 160/4.5MCG INHALER INH SCH ×2 (11:10→19:38)
--- NOTE | 2019-06-21 11:28 | NUR ---
EDUCATED ABOUT IMM, SIGNED, FILED IN CHART, WITH COPY LEFT WITH FAMILY AT BEDSIDE.
[2019-06-21] MEDS: CEFTRIAXONE SOD 1 GM/NS 50 ML 50 ML IV SCH (15:45)
--- NOTE | 2019-06-21 15:46 | NUR ---
Spoke to pt at bedside regarding home health order. [employer] sales support [place] [id number]. CM answered pt's and his 's questions regarding home health. They are agreeable to use any company that takes pt's insurance. Choice letter signed for [facility] and [facility]. Letter placed in chart. Copy to pt. Referral was faxed to [facility] Informed Martha Haynes of referral and pt's preference for Norwegian speaking staff.
--- NOTE | 2019-06-21 16:10 | NUR ---
Per Martha Haynes, pt has [facility] plan. [facility] is unable to accept. Referral was sent to [facility] Staff
[2019-06-21] MEDS: METOPROLOL TARTRATE 25 MG TAB PO SCH (21:00)
[2019-06-21] MEDS: MONTELUKAST SODIUM 10 MG TAB PO SCH (21:12)
[2019-06-21] MEDS: SIMVASTATIN 20 MG TAB PO SCH (21:12)
[2019-06-22] VITALS (8 sets, daily range): BP systolic 99–140; BP diastolic 55–90
[2019-06-22] MEDS: ALBUTEROL/IPRATROPIUM 3 ML NEB NEB SCH ×4 (01:35→19:15)
[2019-06-22] MEDS: BUDESONIDE/FORMOTEROL 160/4.5MCG INHALER INH SCH ×2 (07:02→19:15)
[2019-06-22] MEDS: ASPIRIN 81 MG CHEW TAB PO SCH (08:55)
[2019-06-22] MEDS: METOPROLOL TARTRATE 25 MG TAB PO SCH ×2 (08:57→20:40)
[2019-06-22] MEDS: CLOPIDOGREL BISULFATE 75 MG TAB PO SCH (08:57)
[2019-06-22] MEDS: POLYETHYLENE GLYCOL 3350 17 GM PACK PO SCH ×2 (08:57→16:22)
[2019-06-22] MEDS: HEPARIN SOD (PORCINE) 5,000 UNIT/ML VIAL SC SCH ×2 (08:58→20:40)
--- NOTE | 2019-06-22 10:00 | NUR ---
The pt. refuse a lab draw at this time although he agreed for the
--- NOTE | 2019-06-22 10:19 | NUR ---
SW, 2 CM, DOCTOR AND WOOD TURNER SPOKE WITH PT AND ABOUT SEVERITY OF NEED FOR SNF UPON DISCHARGE. PT AND BOTH ADAMANTLY REFUSED, DOCTOR EXPRESSED CONCERN FOR FALLS AND NEED FOR TREATMENT AND THERAPY, MORE THAN WHAT PT WILL BE GETTING AT HOME. HE STILL SAID NO. PT AND UNDERSTAND RISK OF DISCHARGE HOME AND ARE ACCEPTING OF POSSIBLE OUTCOMES, PT WILL DISCHARGE HOME WITH OXYGEN ALREADY IN ROOM FROM [facility] AND HOME HEALTH WITH PT TO FOLLOW PT, STATES SHE WILL ASSIST IN MAKING SURE PT WILL SEE OUTPATIENT HOME ORDERED SERVICES.
--- NOTE | 2019-06-22 11:32 | Progress Note ---
DATE: 06/22/2019 Cardiology Progress Note SUBJECTIVE: No complaints. Ambulating. OBJECTIVE: VITAL SIGNS: Temperature 98.5, heart rate 106, blood pressure 138/90, respiratory rate 18, O2 saturation 93%. BMI 51. GENERAL: No acute distress, alert. NECK: No JVD. CHEST: Clear to auscultation. CARDIOVASCULAR: Regular rate and rhythm. Normal S1 and S2. ABDOMEN: Soft. EXTREMITIES: No edema. CARDIOVASCULAR MEDICATIONS: Reviewed. Clopidogrel 75 mg daily, aspirin 81 mg daily, metoprolol tartrate 12.5 mg every 12 hours, simvastatin 10 mg at bedtime. LABORATORY DATA: Studies reviewed. Potassium 5.3, creatinine 1.2. White blood cells 10, hemoglobin 12.6, platelets 200. INR 0.9. AST 14, ALT 18. ASSESSMENT: 1. A 63-year-old man with morbid obesity. 2. Pickwickian syndrome. 3. Asthma exacerbation. 4. Acute on chronic diastolic heart failure. 5. Acute kidney injury, now resolved. 6. Coronary artery disease status post left external iliac artery stent. RECOMMENDATIONS: 1. PT, OT evaluation, consider rehab. 2. Okay to discharge from a cardiovascular standpoint on dual antiplatelet therapy, statin therapy and antihypertensives. 3. Low potassium. MD TEMITOPE Christine/BRANNONL /[id number]
--- NOTE | 2019-06-22 11:45 | NUR ---
VENKATA called and spoke with Naomi Isaac with intake at [facility]. She states they are able to accept pt. Informed her MD plans to discharge tomorrow. She will have pt down on schedule to be admitted on . [facility] Staff Home Health
--- NOTE | 2019-06-22 12:30 | NUR ---
The pt. is out of the room to radiology for chest films
--- NOTE | 2019-06-22 13:37 | Diagnostic Imaging Report ---
Chest, 2 views, 06/22/2019. History: Asthma exacerbation. Comparison: 06/08/2019. Findings: The cardiomediastinal silhouette and pulmonary vasculature are within normal limits. The lungs are clear without evidence of consolidation or pleural effusion. Examination is limited due to the patient body habitus. There are no acute osseous or soft tissue abnormalities. Impression: No acute cardiopulmonary abnormality. Signed by: Sathish Duran on 06/22/2019 1:34 PM
[2019-06-22] MEDS: CEFTRIAXONE SOD 1 GM/NS 50 ML 50 ML IV SCH (16:17)
[2019-06-22] MEDS: MONTELUKAST SODIUM 10 MG TAB PO SCH (20:40)
[2019-06-22] MEDS: SIMVASTATIN 20 MG TAB PO SCH (20:40)
[2019-06-23] VITALS: BP 114/57
[2019-06-23 04:00] VITALS: BP 118/66
--- NOTE | 2019-06-23 05:57 | NUR ---
PT REFUSE HIS A.M. LAB DRAW. WILL CONTINUE TO MONITOR.
[2019-06-23] MEDS: ALBUTEROL/IPRATROPIUM 3 ML NEB NEB SCH ×2 (07:19→12:30)
[2019-06-23] MEDS: BUDESONIDE/FORMOTEROL 160/4.5MCG INHALER INH SCH (07:19)
[2019-06-23 08:00] VITALS: BP 135/69
[2019-06-23 08:20] VITALS: BP 135/69
[2019-06-23] MEDS: ASPIRIN 81 MG CHEW TAB PO SCH (08:46)
[2019-06-23] MEDS: CLOPIDOGREL BISULFATE 75 MG TAB PO SCH (08:47)
[2019-06-23] MEDS: METOPROLOL TARTRATE 25 MG TAB PO SCH (08:47)
[2019-06-23] MEDS: HEPARIN SOD (PORCINE) 5,000 UNIT/ML VIAL SC SCH (08:54)
[2019-06-23] MEDS: POLYETHYLENE GLYCOL 3350 17 GM PACK PO SCH (08:54)
--- NOTE | 2019-06-23 09:09 | NUR ---
Spoke with Roberta from sleep lab. Informed of sleep study order. She states she had previously received order for sleep study. Has signed order. Will contact pt to schedule study. Informed her pt has discharge order for today.
--- NOTE | 2019-06-23 09:12 | NUR ---
Called [facility] Staff and spoke with Heaven. Informed her that CM sent over signed home health order this morning. Also notified her that pt has discharge order today. [facility] Staff
--- NOTE | 2019-06-23 10:58 | Discharge Summary ---
PRIMARY CARE PHYSICIAN: Dr. Hira Garcia. CONSULTANTS: 1. Dr. Arias Patricio. 2. Dr. Ray Sood. FINAL DIAGNOSES: 1. Status post respiratory insufficiency associated with near respiratory failure. 2. Status post acute exacerbation of asthma, elevation of IgE. 3. Pulmonary atelectasis. 4. Peripheral vascular disease, status post angiogram with stent to the left lower extremity. 5. Morbidly obese. 6. Obstructive sleep apnea. 7. Acute on chronic diastolic dysfunction, congestive heart failure associated with pulmonary hypertension. SUMMARY: A 63-year-old male adamantly refused skilled care. The patient will need skill for physical therapy, but he absolutely refused. Discussed with the patient and spouse on the phone along with classification case manager in room and the patient adamantly wants to go home with home health. The patient was discharged home with home health today. The patient came in with increasing shortness of breath. He was having lower extremity edema. He was having wheezing. IgE was elevated. The patient with acute asthma exacerbation, worsening with his obstructive sleep apnea, untreated. The patient is very noncompliant to his CPAP. The patient is otherwise stable, had a prolonged hospitalization. He received diuretic treatment. He did much better. He is on oxygen support. Arrangement for home health has been done because the patient refused skilled care. The patient will go home. His discharge home medication continue including amiodarone. Metoprolol, pravastatin, prednisone, the Advair, the DuoNeb and the ProAir inhaler as needed. The patient will stop the lisinopril on his home medication. New prescription is Plavix 75 mg daily, aspirin 81 mg daily, Singulair 10 mg at bedtime, Tylenol No. 3 p.r.n. for pain. Senna-S 1 tablet b.i.d. and Lasix 40 mg p.o. daily. The patient is otherwise stable. He is instructed to follow up with his family physician, Dr. Hira Garcia next week. The patient is instructed to continue with home health care. And I recommend the patient to continue with his CPAP be compliant. If he does not have CPAP, he need to have a sleep study as an outpatient. The patient is otherwise stable, discharged home today after arrangement for home health. He does have oxygen. The patient is stable, discharged. MD REYNALDO Diehl /[id number]
--- NOTE | 2019-06-23 11:04 | Progress Note ---
DATE: Cardiology Progress Note SUBJECTIVE: Denies chest pain or shortness of breath. Deconditioned. OBJECTIVE: VITAL SIGNS: Temperature 97, heart rate 68, blood pressure 135/69, respiratory rate 17, O2 saturation 92%. BMI 51. GENERAL: In no acute distress, alert. NECK: No JVD. CHEST: Clear to auscultation. CARDIOVASCULAR: Regular rate and rhythm. Normal S1 and S2, no S3 or S4. ABDOMEN: Soft. EXTREMITIES: No edema. CARDIOVASCULAR MEDICATIONS: Reviewed. Clopidogrel 75 mg daily, aspirin 81 mg daily, metoprolol tartrate 12.5 mg every 12 hours, simvastatin 20 mg at bedtime. LABORATORY DATA: Studies reviewed. Creatinine 1.2, potassium 5.3, bicarbonate 34. White blood cells 10, hemoglobin 12, platelets 200. AST 14, ALT 18, alkaline phosphatase 55. ASSESSMENT: A 63-year-old man with morbid obesity, [id number] renal failure, now with acute component, peripheral arterial disease, status post left external iliac artery self expanding stent, Pickwickian syndrome, asthma exacerbation, [id number] diastolic heart failure. RECOMMENDATIONS: 1. Continue dual antiplatelet therapy. 2. Continue statin. 3. Continue beta-maik with holding parameters. 4. Hydration. 5. Undergoing evaluation for possible rehab. 6. Clarification from note dated 06/16/2019. labeling strategist was open at that time, not closed. If r&d lab technician was booked and schedule unavailable during the time frame discussed. The patient now status post revascularization successfully done and doing well. MD TEMITOPE Christine/GUERDA /[id number]
--- NOTE | 2019-06-23 11:27 | NUR ---
EDUCATED ABOUT IMM SIGNED FILED IN CHART AND LEFT COPY WITH PT BEDSIDE WITH CARD FOR ANY FURTHER QUESTIONS
--- NOTE | 2019-06-23 15:14 | NUR ---
Pt discharged home at this time. Pt and family verbalized understanding of all discharge instructions. Pt is going home with home health and oxygen.
--- NOTE | 2019-06-24 08:59 | Pulmonary Function Test ---
DATE OF STUDY: REFERRING PHYSICIAN: NAME OF STUDY: Spirometry Report. Patient of Dr. Brock. FINDINGS: Suboptimal effort makes results questionable. Pattern is one of severe restriction. Forced vital capacity is 0.7 L, 18% of predicted. FEV1 0.6 L 21%. FEV1 FVC ratio 87%. [id number] of 25%. Arias Patricio MD DS/MODL /[id number]
== END 2019-06-23 15:15 | disposition home health service (06) | DRG 166 ==
LOC: ER 15:05 → ERHOLD 18:04 → MED/SURG3 22:00
PROVIDERS: ADMIT Internal Medicine; ATTEND Internal Medicine
PROC: 047J3DZ Dilation of Left External Iliac Artery with Intraluminal Device, Percutaneous Approach (ICD-10-PCS; principal; 2019-06-17)
PROC: B41D1ZZ Fluoroscopy of Aorta and Bilateral Lower Extremity Arteries using Low Osmolar Contrast (ICD-10-PCS; 2019-06-17)
DX: J45.901 Unspecified asthma with (acute) exacerbation (principal); I50.33 Acute on chronic diastolic (congestive) heart failure; J98.11 Atelectasis; E66.2 Morbid (severe) obesity with alveolar hypoventilation; Z68.43 Body mass index [BMI] 50.0-59.9, adult; I70.92 Chronic total occlusion of artery of the extremities; I13.0 Hypertensive heart and chronic kidney disease with heart failure and stage 1 through stage 4 chronic kidney disease, or unspecified chronic kidney disease; N17.9 Acute kidney failure, unspecified; R06.89 Other abnormalities of breathing; E11.51 Type 2 diabetes mellitus with diabetic peripheral angiopathy without gangrene; I70.202 Unspecified atherosclerosis of native arteries of extremities, left leg; I48.0 Paroxysmal atrial fibrillation; I27.20 Pulmonary hypertension, unspecified; E11.22 Type 2 diabetes mellitus with diabetic chronic kidney disease; N18.9 Chronic kidney disease, unspecified; E78.5 Hyperlipidemia, unspecified; R09.02 Hypoxemia; I25.10 Atherosclerotic heart disease of native coronary artery without angina pectoris; M10.9 Gout, unspecified; Z99.81 Dependence on supplemental oxygen; Z79.51 Long term (current) use of inhaled steroids; Z79.52 Long term (current) use of systemic steroids; Z91.19 Patient's noncompliance with other medical treatment and regimen; Z82.49 Family history of ischemic heart disease and other diseases of the circulatory system
CPT/HCPCS: 36247; 36415; 37221; 71045; 71046; 71250; 75625; 75716; 80048; 80053; 81001; 82550; 82553; 82785; 82948; 83605; 83735; 83880; 84132; 84443; 84484; 84550; 85025; 85610; 85730; 86001; 86003; 87040; 87086; 93005; 93306; 93925; 94060; 94640; 94660; 94664; 97139; 99284; C1725; C1760; C1766; C1769; C1876; C1887; J0456; J0696; J1644; J1650; J1940; J2001; J2250; J2920; J2930; J3010; J7030; J7050; J7512; Q9967

== ENCOUNTER 2021-10-31 17:33 | Inpatient (IN) | payer MEDICARE ==
[~2021-10-31] VITALS: Ht 160 cm; Wt 122.2 kg
[~2021-10-31 17:33] MED LIST changes: +LISINOPRIL20 MG PO; +PRAVASTATIN SOD40 MG PO
[2021-10-31] MEDS ORDERED: IBUPROFEN 600 MG TAB PO STA (18:13)
[2021-10-31 18:16] LABS: BASOPHILS % 0.4 % (0.0-1.0); EOSINOPHILS % 0.1 % (0.0-6.0); HEMATOCRIT 52.6 % (38.2-49.6); HEMOGLOBIN 17.1 g/dL (14.0-18.0); LYMPHOCYTES # (AUTO) 1.4 (1.0-3.2); LYMPHOCYTES % 18.9 % (18.0-39.1); MEAN CORPUSCULAR HEMOGLOBIN 31.8 pg (28-32); MEAN CORPUSCULAR HGB CONC 32.5 g/dL (31-35); MEAN CORPUSCULAR VOLUME 97.8 fL (81-99); MONOCYTES % 13.7 % (4.4-11.3); NEUTROPHILS # (AUTO) 4.7 (2.1-6.9); NEUTROPHILS % 66.5 % (38.7-80.0); PLATELET COUNT 149 x10e3/uL (140-360); RED BLOOD COUNT 5.38 x10e6/uL (4.3-5.7); RED CELL DISTRIBUTION WIDTH 13.9 % (11.7-14.4)
[2021-10-31 18:33] LABS: ALBUMIN 3.6 g/dL (3.5-5.0); ALBUMIN/GLOBULIN RATIO 0.9 (0.8-2.0); ANION GAP 18.4 mmol/L (8-16); CALCIUM 8.4 mg/dL (8.4-10.2); CREATININE, SERUM 2.28 mg/dL (0.72-1.25); POTASSIUM 4.4 mmol/L (3.5-5.1)
[2021-10-31 18:39] LABS: CREATINE KINASE MB 9.2 ng/mL (0-5.0)
[2021-10-31] MEDS ORDERED: ACETAMINOPHEN 325 MG TAB PO PRN (19:30)
[2021-10-31] MEDS ORDERED: SODIUM CHLORIDE 0.9% 1000ML 1,000 ML IV ONE ×2 (19:30)
[2021-10-31] MEDS ORDERED: DEXTROSE 50% SYRINGE 50 ML IV PRN (19:30)
[2021-10-31] MEDS ORDERED: ONDANSETRON HCL INJ 2MG/ML 2ML 2 MG/ML VIAL IV PRN (19:30)
[2021-10-31] MEDS ORDERED: SODIUM CHLORIDE 0.9% 1000ML 1,000 ML ONE (19:32)
[2021-10-31] MEDS: CEFTRIAXONE 2 GM in SODIUM CHLORIDE 0.9% 100 ML IV SCH (19:40)
[2021-10-31] MEDS ORDERED: CEFTRIAXONE 2 GM VIAL ONE (19:53)
[2021-10-31] MEDS ORDERED: SODIUM CHLORIDE 0.9% 50ML 50 ML ONE (19:53)
[2021-10-31] MEDS ORDERED: SODIUM CHLORIDE 0.9% 250ML 250 ML ONE (19:54)
[2021-10-31] MEDS ORDERED: REMDESIVIR 200MG 200 MG in SODIUM CHLORIDE 0.9% 100 ML 100 ML IV ONE (20:00)
[2021-10-31 20:24] VITALS: BP 82/50
[2021-10-31] MEDS ORDERED: MONTELUKAST SOD10 MG PO (20:49)
[2021-10-31] MEDS ORDERED: LISINOPRIL20 MG PO (20:49)
[2021-10-31] MEDS ORDERED: CLOPIDOGREL75 MG PO (20:49)
[2021-10-31] MEDS ORDERED: INSULIN REGULAR, HUMAN 100 UNIT/1 ML SQ SCH (21:00)
[2021-10-31] MEDS: DEXAMETHASONE SOD PHOS 10 MG/1 ML VIAL IV SCH (22:41)
[2021-10-31] MEDS ORDERED: calcium PO (23:33)
[2021-10-31] MEDS ORDERED: LINZESS145 MCG PO (23:33)
[2021-11-01] VITALS (8 sets, daily range): BP systolic 82–126; BP diastolic 50–78
[2021-11-01 03:47] LABS: CREATINE KINASE MB 28.7 ng/mL (0-5.0)
[2021-11-01 04:53] LABS: BASOPHILS % 0.4 % (0.0-1.0); HEMATOCRIT 54.8 % (38.2-49.6); HEMOGLOBIN 16.8 g/dL (14.0-18.0); LYMPHOCYTES # (AUTO) 1.3 (1.0-3.2); LYMPHOCYTES % 14.9 % (18.0-39.1); MEAN CORPUSCULAR HEMOGLOBIN 32.4 pg (28-32); MEAN CORPUSCULAR HGB CONC 30.7 g/dL (31-35); MEAN CORPUSCULAR VOLUME 105.6 fL (81-99); MONOCYTES # (AUTO) 0.7 (0.2-0.8); MONOCYTES % 8.1 % (4.4-11.3); NEUTROPHILS # (AUTO) 6.5 (2.1-6.9); NEUTROPHILS % 76.4 % (38.7-80.0); PLATELET COUNT 163 x10e3/uL (140-360); RED BLOOD COUNT 5.19 x10e6/uL (4.3-5.7); RED CELL DISTRIBUTION WIDTH 14.4 % (11.7-14.4)
[2021-11-01 05:44] LABS: ALBUMIN 3.2 g/dL (3.5-5.0); ALBUMIN/GLOBULIN RATIO 0.9 (0.8-2.0); ANION GAP 16.6 mmol/L (8-16); CALCIUM 7.7 mg/dL (8.4-10.2); CREATININE, SERUM 2.2 mg/dL (0.72-1.25)
[2021-11-01 05:53] LABS: POTASSIUM 5.6 mmol/L (3.5-5.1)
[2021-11-01] MEDS ORDERED: ALBUTEROL SULFATE HFA 8GM INHALATION AEROSOL INH PRN ×2 (08:45)
[2021-11-01] MEDS ORDERED: ENOXAPARIN 30 MG/0.3 ML SYR SC SCH (09:00)
[2021-11-01] MEDS: MONTELUKAST SODIUM 10 MG TAB PO SCH (09:19)
[2021-11-01] MEDS: ZINC SULFATE 50 MG CAP PO SCH (09:19)
[2021-11-01] MEDS: ASCORBIC ACID 500 MG TAB PO SCH ×2 (09:19→15:56)
[2021-11-01] MEDS ORDERED: CHLORASEPTIC SPRAY 177 ML BTL MM PRN ×2 (10:15)
[2021-11-01] MEDS ORDERED: SOD POLYSTYRENE SULFONATE SUSP 15 GM/60 ML BTL PO ONE (12:00)
[2021-11-01] MEDS: BACITRACIN ZINC 15 GM OINT TOP SCH (15:04)
[2021-11-01] MEDS: REMDESIVIR 100MG 100 MG in SODIUM CHLORIDE 0.9% 100 ML IV SCH (15:09)
[2021-11-01] MEDS ORDERED: NON-FORMULARY MEDICATION (Pravastatin Sodium 40 MG) PO SCH (21:00)
[2021-11-01] MEDS: PRAVASTATIN 20 MG TAB PO SCH (21:33)
[2021-11-01] MEDS: CEFTRIAXONE 2 GM in SODIUM CHLORIDE 0.9% 100 ML IV SCH (21:33)
[2021-11-01] MEDS: DEXAMETHASONE SOD PHOS 10 MG/1 ML VIAL IV SCH (21:33)
[2021-11-01] MEDS: LINACLOTIDE 145 MCG CAPSULE PO PRN (21:34)
[2021-11-02] VITALS (8 sets, daily range): BP systolic 113–121; BP diastolic 64–86
[2021-11-02 05:02] LABS: HEMATOCRIT 51.7 % (38.2-49.6); HEMOGLOBIN 16.5 g/dL (14.0-18.0); LYMPHOCYTES # (AUTO) 1.1 (1.0-3.2); LYMPHOCYTES % 13.6 % (18.0-39.1); MEAN CORPUSCULAR HGB CONC 31.9 g/dL (31-35); MEAN CORPUSCULAR VOLUME 100.4 fL (81-99); MONOCYTES # (AUTO) 0.3 (0.2-0.8); MONOCYTES % 3.6 % (4.4-11.3); NEUTROPHILS # (AUTO) 6.4 (2.1-6.9); NEUTROPHILS % 82.4 % (38.7-80.0); PLATELET COUNT 134 x10e3/uL (140-360); RED BLOOD COUNT 5.15 x10e6/uL (4.3-5.7); RED CELL DISTRIBUTION WIDTH 13.7 % (11.7-14.4)
[2021-11-02 05:29] LABS: ALBUMIN/GLOBULIN RATIO 0.8 (0.8-2.0); ANION GAP 15.5 mmol/L (8-16); CALCIUM 7.7 mg/dL (8.4-10.2); CREATININE, SERUM 1.68 mg/dL (0.72-1.25); POTASSIUM 4.5 mmol/L (3.5-5.1)
[2021-11-02 06:07] LABS: CLARITY,URINE CLEAR (CLEAR); COLOR,URINE YELLOW (YELLOW)
[2021-11-02 06:08] LABS: KETONES,URINE NEGATIVE (NEGATIVE); LEUKOCYTE ESTERASE ,URINE NEGATIVE (NEGATIVE); NITRITE,URINE NEGATIVE (NEGATIVE); PROTEIN,URINE DIPSTICK 1+ (NEGATIVE); URINE UROBILINOGEN 0.2 mg/dL (0.2 - 1)
[2021-11-02] MEDS: ENOXAPARIN 30 MG/0.3 ML SYR SC SCH (06:16)
[2021-11-02 06:25] LABS: BACTERIA,URINE FEW /HPF; EPITHELIAL CELLS,URINE FEW /LPF; RBC,URINE 0-5 /HPF (0-5); WBC,URINE (MAN) 0-5 /HPF (0-5)
[2021-11-02] MEDS: CLOPIDOGREL BISULFATE 75 MG TAB PO SCH (08:09)
[2021-11-02] MEDS: ZINC SULFATE 50 MG CAP PO SCH (08:09)
[2021-11-02] MEDS: ASCORBIC ACID 500 MG TAB PO SCH ×2 (08:09→16:42)
[2021-11-02] MEDS: MONTELUKAST SODIUM 10 MG TAB PO SCH (08:09)
[2021-11-02] MEDS: BACITRACIN ZINC 15 GM OINT TOP SCH (09:17)
[2021-11-02] MEDS: REMDESIVIR 100MG 100 MG in SODIUM CHLORIDE 0.9% 100 ML IV SCH (13:43)
[2021-11-02] MEDS: CEFTRIAXONE 2 GM in SODIUM CHLORIDE 0.9% 100 ML IV SCH (20:08)
[2021-11-02] MEDS: DEXAMETHASONE SOD PHOS 10 MG/1 ML VIAL IV SCH (20:08)
[2021-11-02] MEDS: PRAVASTATIN 20 MG TAB PO SCH (21:52)
[2021-11-03] VITALS (7 sets, daily range): BP systolic 121–144; BP diastolic 83–97
[2021-11-03] MEDS: ENOXAPARIN 30 MG/0.3 ML SYR SC SCH (05:46)
[2021-11-03] MEDS: ZINC SULFATE 50 MG CAP PO SCH (09:53)
[2021-11-03] MEDS: CLOPIDOGREL BISULFATE 75 MG TAB PO SCH (09:53)
[2021-11-03] MEDS: SODIUM BICARBONATE 650 MG TAB PO SCH (09:53)
[2021-11-03] MEDS: ASCORBIC ACID 500 MG TAB PO SCH ×2 (09:53→17:00)
[2021-11-03] MEDS: BACITRACIN ZINC 15 GM OINT TOP SCH (09:53)
[2021-11-03] MEDS: MONTELUKAST SODIUM 10 MG TAB PO SCH (09:53)
[2021-11-03 12:10] LABS: ANION GAP 16.3 mmol/L (8-16); CALCIUM 7.8 mg/dL (8.4-10.2); CREATININE, SERUM 1.21 mg/dL (0.72-1.25); POTASSIUM 4.3 mmol/L (3.5-5.1)
[2021-11-03] MEDS: REMDESIVIR 100MG 100 MG in SODIUM CHLORIDE 0.9% 100 ML IV SCH (15:25)
[2021-11-03] MEDS: LINACLOTIDE 145 MCG CAPSULE PO PRN (17:00)
[2021-11-03] MEDS: DEXAMETHASONE SOD PHOS 10 MG/1 ML VIAL IV SCH (20:00)
[2021-11-03] MEDS: PRAVASTATIN 20 MG TAB PO SCH (21:33)
[2021-11-04] VITALS (7 sets, daily range): BP systolic 115–130; BP diastolic 77–86
[2021-11-04] MEDS: ENOXAPARIN 30 MG/0.3 ML SYR SC SCH (06:43)
[2021-11-04] MEDS: CLOPIDOGREL BISULFATE 75 MG TAB PO SCH (08:45)
[2021-11-04] MEDS: MONTELUKAST SODIUM 10 MG TAB PO SCH (08:45)
[2021-11-04] MEDS: ASCORBIC ACID 500 MG TAB PO SCH ×2 (08:45→17:05)
[2021-11-04] MEDS: ZINC SULFATE 50 MG CAP PO SCH (08:45)
[2021-11-04] MEDS: SODIUM BICARBONATE 650 MG TAB PO SCH (08:45)
[2021-11-04] MEDS: BACITRACIN ZINC 15 GM OINT TOP SCH (08:46)
[2021-11-04] MEDS: LINACLOTIDE 145 MCG CAPSULE PO PRN (10:18)
[2021-11-04] MEDS: REMDESIVIR 100MG 100 MG in SODIUM CHLORIDE 0.9% 100 ML IV SCH (14:45)
[2021-11-04] MEDS ORDERED: REMDESIVIR 100MG 100 MG IV ONE (15:15)
[2021-11-04] MEDS ORDERED: SODIUM CHLORIDE 0.9% 100 ML ONE (15:18)
[2021-11-04] MEDS: DEXAMETHASONE SOD PHOS 10 MG/1 ML VIAL IV SCH (20:27)
[2021-11-04] MEDS: PRAVASTATIN 20 MG TAB PO SCH (20:27)
[2021-11-05] VITALS (7 sets, daily range): BP systolic 120–138; BP diastolic 77–88
[2021-11-05] MEDS: ENOXAPARIN 30 MG/0.3 ML SYR SC SCH (05:35)
[2021-11-05 06:15] LABS: BASOPHILS % 0.1 % (0.0-1.0); HEMOGLOBIN 16.6 g/dL (14.0-18.0); LYMPHOCYTES % 14.5 % (18.0-39.1); MEAN CORPUSCULAR HGB CONC 32.5 g/dL (31-35); MEAN CORPUSCULAR VOLUME 98.5 fL (81-99); MONOCYTES # (AUTO) 0.4 (0.2-0.8); MONOCYTES % 5.5 % (4.4-11.3); NEUTROPHILS # (AUTO) 5.7 (2.1-6.9); NEUTROPHILS % 79.6 % (38.7-80.0); PLATELET COUNT 152 x10e3/uL (140-360); RED BLOOD COUNT 5.18 x10e6/uL (4.3-5.7); RED CELL DISTRIBUTION WIDTH 13.1 % (11.7-14.4)
[2021-11-05 07:00] LABS: ALBUMIN 2.7 g/dL (3.5-5.0); ALBUMIN/GLOBULIN RATIO 0.8 (0.8-2.0); ANION GAP 12.1 mmol/L (8-16); CALCIUM 7.5 mg/dL (8.4-10.2); CREATININE, SERUM 1.13 mg/dL (0.72-1.25); POTASSIUM 5.1 mmol/L (3.5-5.1)
[2021-11-05] MEDS: CLOPIDOGREL BISULFATE 75 MG TAB PO SCH (10:59)
[2021-11-05] MEDS: SODIUM BICARBONATE 650 MG TAB PO SCH (10:59)
[2021-11-05] MEDS: MONTELUKAST SODIUM 10 MG TAB PO SCH (10:59)
[2021-11-05] MEDS: APIXABAN 5 MG TABLET PO SCH ×2 (10:59→16:48)
[2021-11-05] MEDS: ASCORBIC ACID 500 MG TAB PO SCH ×2 (10:59→16:48)
[2021-11-05] MEDS: ZINC SULFATE 50 MG CAP PO SCH (10:59)
[2021-11-05] MEDS ORDERED: ONDANSETRON HCL 4 MG ORAL DISINTEGRATING TAB PO PRN (13:00)
[2021-11-05] MEDS: BACITRACIN ZINC 15 GM OINT TOP SCH (14:25)
[2021-11-05] MEDS: PRAVASTATIN 20 MG TAB PO SCH (21:03)
[2021-11-05] MEDS: DEXAMETHASONE SOD PHOS 10 MG/1 ML VIAL IV SCH (21:03)
[2021-11-06] VITALS: BP 114/53
[2021-11-06 04:00] VITALS: BP 135/97
[2021-11-06 07:58] VITALS: BP 131/69
[2021-11-06] MEDS: ZINC SULFATE 50 MG CAP PO SCH (11:00)
[2021-11-06] MEDS: MONTELUKAST SODIUM 10 MG TAB PO SCH (11:00)
[2021-11-06] MEDS: ASCORBIC ACID 500 MG TAB PO SCH ×2 (11:00→17:43)
[2021-11-06] MEDS: SODIUM BICARBONATE 650 MG TAB PO SCH (11:00)
[2021-11-06] MEDS: APIXABAN 5 MG TABLET PO SCH ×2 (11:00→17:43)
[2021-11-06] MEDS: CLOPIDOGREL BISULFATE 75 MG TAB PO SCH (11:00)
[2021-11-06] MEDS: BACITRACIN ZINC 15 GM OINT TOP SCH (11:01)
[2021-11-06] MEDS ORDERED: SOD POLYSTYRENE SULFONATE SUSP 15 GM/60 ML BTL PO NR (17:00)
[2021-11-06 20:00] VITALS: BP 142/100
[2021-11-06] MEDS: DEXAMETHASONE SOD PHOS 10 MG/1 ML VIAL IV SCH (20:32)
[2021-11-06] MEDS: PRAVASTATIN 20 MG TAB PO SCH (20:32)
[2021-11-06 20:33] VITALS: BP 142/100
[2021-11-07] VITALS (7 sets, daily range): BP systolic 111–144; BP diastolic 50–99
[2021-11-07] MEDS: ASCORBIC ACID 500 MG TAB PO SCH ×2 (09:18→17:00)
[2021-11-07] MEDS: BACITRACIN ZINC 15 GM OINT TOP SCH (09:18)
[2021-11-07] MEDS: ZINC SULFATE 50 MG CAP PO SCH (09:18)
[2021-11-07] MEDS: MONTELUKAST SODIUM 10 MG TAB PO SCH (09:18)
[2021-11-07] MEDS: APIXABAN 5 MG TABLET PO SCH ×2 (09:18→17:00)
[2021-11-07] MEDS: CLOPIDOGREL BISULFATE 75 MG TAB PO SCH (09:18)
[2021-11-07] MEDS: PRAVASTATIN 20 MG TAB PO SCH (21:10)
[2021-11-07] MEDS: DEXAMETHASONE SOD PHOS 10 MG/1 ML VIAL IV SCH (21:10)
[2021-11-08] VITALS (8 sets, daily range): BP systolic 109–147; BP diastolic 72–95
[2021-11-08] MEDS: ASCORBIC ACID 500 MG TAB PO SCH ×2 (08:56→16:38)
[2021-11-08] MEDS: ZINC SULFATE 50 MG CAP PO SCH (08:56)
[2021-11-08] MEDS: MONTELUKAST SODIUM 10 MG TAB PO SCH (08:56)
[2021-11-08] MEDS: BACITRACIN ZINC 15 GM OINT TOP SCH (08:56)
[2021-11-08] MEDS: APIXABAN 5 MG TABLET PO SCH ×2 (08:56→16:38)
[2021-11-08] MEDS: CLOPIDOGREL BISULFATE 75 MG TAB PO SCH (08:56)
[2021-11-08] MEDS: PRAVASTATIN 20 MG TAB PO SCH (21:30)
[2021-11-09 00:01] VITALS: BP 122/79
[2021-11-09 00:28] VITALS: BP 122/79
[2021-11-09 05:25] VITALS: BP 121/80
[2021-11-09 08:14] VITALS: BP 113/82
[2021-11-09 08:15] VITALS: BP 113/82
[2021-11-09] MEDS: ZINC SULFATE 50 MG CAP PO SCH (09:45)
[2021-11-09] MEDS: CLOPIDOGREL BISULFATE 75 MG TAB PO SCH (09:45)
[2021-11-09] MEDS: ASCORBIC ACID 500 MG TAB PO SCH (09:45)
[2021-11-09] MEDS: MONTELUKAST SODIUM 10 MG TAB PO SCH (09:45)
[2021-11-09] MEDS: APIXABAN 5 MG TABLET PO SCH (09:45)
[2021-11-09 11:05] VITALS: BP 105/59
[2021-11-09] MEDS ORDERED: DEXAMETHASONE 4 MG TAB PO SCH (12:30)
== END 2021-11-09 15:00 | DRG 177 ==
LOC: ER 18:10 → ERHOLD 19:30 → MED/SURG2 20:24 → MED/SURG3 11-02 13:58
PROVIDERS: ADMIT Internal Medicine; ATTEND Internal Medicine
PROC: 3E0333Z Introduction of Anti-inflammatory into Peripheral Vein, Percutaneous Approach (ICD-10-PCS; principal; 2021-10-31)
PROC: XW033E5 Introduction of Remdesivir Anti-infective into Peripheral Vein, Percutaneous Approach, New Technology Group 5 (ICD-10-PCS; 2021-10-31)
DX: U07.1 COVID-19 (principal); N17.0 Acute kidney failure with tubular necrosis; J12.82 Pneumonia due to coronavirus disease 2019; J15.9 Unspecified bacterial pneumonia; J96.22 Acute and chronic respiratory failure with hypercapnia; J96.21 Acute and chronic respiratory failure with hypoxia; I48.20 Chronic atrial fibrillation, unspecified; Z68.42 Body mass index [BMI] 45.0-49.9, adult; E87.2 Acidosis; E66.01 Morbid (severe) obesity due to excess calories; G47.33 Obstructive sleep apnea (adult) (pediatric); Z83.3 Family history of diabetes mellitus; Z82.49 Family history of ischemic heart disease and other diseases of the circulatory system; Z84.89 Family history of other specified conditions; J45.909 Unspecified asthma, uncomplicated; I12.9 Hypertensive chronic kidney disease with stage 1 through stage 4 chronic kidney disease, or unspecified chronic kidney disease; N18.31 Chronic kidney disease, stage 3a; Z99.81 Dependence on supplemental oxygen; I87.8 Other specified disorders of veins
CPT/HCPCS: 36415; 71045; 71250; 76770; 80048; 80053; 81001; 81015; 82550; 82553; 82948; 83518; 83605; 83880; 84100; 84484; 85025; 87040; 87070; 93005; 94799; 97139; 99251; 99285; J0456; J0696; J1100; J1650; J2405; J7030; J7050; U0002

== ENCOUNTER 2024-05-17 22:42 | Emergency (ER) | payer MEDICARE ==
[~2024-05-17] VITALS: Ht 312.4 cm; Wt 122.0 kg
[~2024-05-17 22:42] MED LIST changes: +CLOPIDOGREL75 MG PO; +LINZESS145 MCG PO; +MONTELUKAST SOD10 MG PO; +calcium PO
[2024-05-17 22:45] VITALS: PULSE 71; RESP 18; TEMP 98.9
[2024-05-17 23:23] LABS: BASOPHILS # (AUTO) 0.1 (0.0-0.1); BASOPHILS % 0.7 % (0.0-1.0); EOSINOPHILS # (AUTO) 0.5 (0.0-0.4); EOSINOPHILS % 7.6 % (0.0-6.0); HEMATOCRIT 61.7 % (38.2-49.6); HEMOGLOBIN 19.9 g/dL (14.0-18.0); LYMPHOCYTES % 29.1 % (18.0-39.1); MEAN CORPUSCULAR HEMOGLOBIN 32.9 pg (28-32); MEAN CORPUSCULAR HGB CONC 32.3 g/dL (31-35); MONOCYTES # (AUTO) 0.9 (0.2-0.8); MONOCYTES % 13.1 % (4.4-11.3); NEUTROPHILS # (AUTO) 3.5 (2.1-6.9); NEUTROPHILS % 49.4 % (38.7-80.0); PLATELET COUNT 158 x10e3/uL (140-360); RED BLOOD COUNT 6.05 x10e6/uL (4.3-5.7); RED CELL DISTRIBUTION WIDTH 15.3 % (11.7-14.4)
[2024-05-18 01:12] LABS: ALBUMIN 2.9 g/dL (3.5-5.0); ALBUMIN/GLOBULIN RATIO 0.7 (0.8-2.0); CALCIUM 8.7 mg/dL (8.4-10.2); CREATININE, SERUM 1.65 mg/dL (0.72-1.25); TOTAL PROTEIN 6.8 g/dL (6.5-8.1)
[2024-05-18 01:18] LABS: TROPONIN I 0.009 ng/mL (0-0.300)
[2024-05-18 01:32] LABS: ANION GAP 15.7 mmol/L (8-16); BILIRUBIN,TOTAL 0.6 mg/dL (0.2-1.2); POTASSIUM 4.7 mmol/L (3.5-5.1)
[2024-05-18 05:04] VITALS: BP 132/75; PULSE 59; RESP 19; TEMP 97.9; O2SAT 93
== END 2024-05-18 05:06 | disposition home or self-care (01) ==
LOC: ER 22:51
DX: R09.02 Hypoxemia (principal); R06.02 Shortness of breath; Z99.81 Dependence on supplemental oxygen; I10 Essential (primary) hypertension; J44.9 Chronic obstructive pulmonary disease, unspecified; I50.9 Heart failure, unspecified; I48.91 Unspecified atrial fibrillation; K76.9 Liver disease, unspecified; J45.909 Unspecified asthma, uncomplicated; G47.30 Sleep apnea, unspecified; Z11.52 Encounter for screening for COVID-19
CPT/HCPCS: 36415; 71045; 80053; 82550; 83690; 83880; 84484; 85025; 93005; 99284; U0002